=== PATIENT | female | born 1980 | race Caucasian/White ===

== ENCOUNTER 2019-06-20 09:07 | Day surgery (SDC) | payer BC, SELFPAY ==
[2019-06-19 17:02] VITALS: BMI 35.3
--- NOTE | 2019-06-20 08:09 | PM.HPUD ---
H&P update H&P Update: DATE OF SURGERY/PROCEDURE: 06/20/19 DATE H&P PERFORMED: 06/19/19 PLANNED PROCEDURE: Operation Date: 06/20/19 10:35 Proposed Procedures p EGD 31571 R10.12(Not Applicable) - Bear Pulido MD Full H&P Perinent History: Medical/Surgical History: Medical History (Updated 06/19/19 @ 17:56 by Bear Pulido MD) Chronic back pain (Acute) Hypothyroidism (Acute) Left upper quadrant pain (Acute) Migraines (Acute) Seizures (Acute) Family History: Family History (Updated 06/14/19 @ 14:01 by PINKY Arrieta) Mother Bipolar disorder Depression Father Diabetes Denies family history of Anesthesia complication Bleeding disorder Social History: Social History Smoking and tobacco status: never smoked Alcohol intake: never Lives independently: Yes Household members: family Marital status: Single Current occupational status: employed
--- NOTE | 2019-06-20 09:23 | ANES.PREANES ---
Pre-Anesthetic Assessment Pre-Anesthetic Assessment: Height/Weight: Height 1.68 m Weight 99.337 kg Preop Diagnosis: abdominal pain Proposed Procedure: Operation Date: 06/20/19 10:35 Proposed Procedures p EGD 13303 R10.12(Not Applicable) - Bear Pulido MD Familial anesthetic complications: No trouble Was Beta Ayesha taken within 24 hours: N/A Last intake: NPO > 8 hrs hrs, levothyroxine took this morning Social: Social History: No alcohol and No tobacco Exam: Pre-Anes Outpt Exam: alert, oriented x 3, clear to auscultation bilaterally and regular rate & rhythm Airway: Cervical ROM: WNL MP: 2 Additional comments: 1 missing Pulmonary: Pulmonary: None reported CV/HEM: CV/HEM: None reported : : None reported Hepatic: Hepatic: None reported GI: GI: None reported Metabolic: Metabolic: Thyroid Musc/skel: Musc/skel: Lower Back Pain Comments: chronic back pain Neuropsych: Neuropsych: Seizure Comments: last seizure 2004 - depakote (last took last night) - unknown etiology Anesthetic Plan: ASA status: III Anesthesia: MAC Risk of > 500 ml blood loss (7ml/kg in children): No PFSH Anesthesia PFSH: Social History Smoking and tobacco status: never smoked Alcohol intake: never Lives independently: Yes Household members: family Marital status: Single Current occupational status: employed Data Anesthesia Cardiac Studies: No Data to Display
[2019-06-20] MEDS: sodium chloride 0.9% 1,000 ML 30 ML (09:57)
[2019-06-20 10:35] VITALS: BP 113/77; RESP 18; TEMP 36.9; O2SAT 97
[2019-06-20] MEDS: ondansetron 2 mg/ML SDV 2 mL 4 MG IVP (10:47)
[2019-06-20 10:49] LABS: OR HCG Qualitative Urine Negative (Negative)
[2019-06-20 10:50] VITALS: BP 132/93; PULSE 79; RESP 16; O2SAT 99
--- NOTE | 2019-06-20 14:52 | ANE.PACU ---
 Inpatient post-anesthesia follow up: Airway intact: Yes Vital signs: Temperature 98.5 F Pulse Rate [Right Radial] 79 Respiratory Rate 16 Blood Pressure [Le ft Arm] 132/93 Pulse Oximetry 99 Oxygen Delivery Me thod Room Air Oxygen Flow Rate 2 Fraction of Inspir ed Oxygen Hydration adequate: Yes Nausea and vomiting: No Mental status: Baseline
== END 2019-06-20 11:11 | disposition home or self-care (01) ==
PROVIDERS: Family Provider Family Medicine; PCP Family Medicine; Visit Provider Surgery
PROC: 0DJ08ZZ Inspection of Upper Intestinal Tract, Via Natural or Artificial Opening Endoscopic (ICD-10-PCS; CPT 43235; principal; 2019-06-20 10:30)
DX: R10.12 Left upper quadrant pain (principal); Z90.49 Acquired absence of other specified parts of digestive tract; Z83.3 Family history of diabetes mellitus
CPT/HCPCS: 12345; 43239; 84703; 87077; 88305; 96365; 96374; J2001; J2405; J7030

== ENCOUNTER 2019-06-26 16:58 | Emergency (ER) | payer BC, SELFPAY ==
[2019-06-26 16:58] VITALS: BP 122/82; PULSE 99; RESP 18; TEMP 36.5; O2SAT 97
[2019-06-26 17:00] VITALS: BMI 34.7
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
[2019-06-26 18:00] LABS: Basophils % 0.1 %; Eosinophils # 0.1 10^3/uL (0.0-0.8); Eosinophils % 0.6 %; Hematocrit 40.9 % (37.0-47.0); Hemoglobin 13.1 g/dL (11.5-15.3); Lymphocytes # 1.6 10^3/uL (0.8-4.8); Lymphocytes % 13.4 %; Mean Corpuscular Hemoglobin 30.8 pg (28.0-34.0); Mean Corpuscular Volume 96.2 fL (81-99); Mean Platelet Volume 10.2 fL (7.4-10.4); Monocytes # 0.6 10^3/uL (0.2-0.9); Monocytes % 4.8 %; Neutrophils # 9.6 10^3/uL (1.8-7.7); Neutrophils % 80.5 %; Nucleated Red Blood Cells % 0 %; Platelet Count 173 10^3/cmm (130-400); Red Blood Count 4.25 10^6/uL (4.1-5.3); White Blood Count 11.9 10^3/uL (4.0-10.0)
[2019-06-26 18:10] LABS: INR 1.03 (0.8-1.2)
[2019-06-26 18:16] LABS: Lactate (Lactic Acid level) 2.9 mmol/L (0.5-2.2)
[2019-06-26 18:18] LABS: Alanine Aminotransferase 29 U/L (0-33); Albumin Level 4.3 g/dL (3.5-5.2); Alkaline Phosphatase 65 IU/L (35-105); Anion Gap 19.6 (5-19); Aspartate Amino Transferase 35 U/L (0-32); Blood Urea Nitrogen 9 mg/dL (6-20); Calcium 9.7 mg/Dl (8.6-10.0); Carbon Dioxide 21 mmol/L (22-29); Chloride 104 mmol/L (98-107); Globulin 2.6 g/dL (1.3-4.6); Glomerular Filtration Rate 110.7 mL/min (90-130); Glucose 129 mg/dL (74-109); Potassium 3.6 mmol/L (3.5-5.1); Sodium 141 mmol/L (136-145); Total Bilirubin 0.2 mg/dL (0.15-1.2); Total Protein 6.9 g/dL (6.6-8.7)
[2019-06-26 18:19] VITALS: RESP 18
[2019-06-26 18:19] LABS: HCG, Serum Qual Negative (Negative)
[2019-06-26] MEDS: morphine 4 mg/mL SDV 1 mL IVP (18:19)
[2019-06-26 21:05] VITALS: BP 107/82; PULSE 110; RESP 16; O2SAT 97
== END 2019-06-26 20:13 | disposition home or self-care (01) ==
PROVIDERS: Emergency Provider Nurse Practitioner Family; Family Provider Family Medicine; PCP Family Medicine
DX: S80.212A Abrasion, left knee, initial encounter (principal); S80.211A Abrasion, right knee, initial encounter; S00.01XA Abrasion of scalp, initial encounter; S40.212A Abrasion of left shoulder, initial encounter; S01.112A Laceration without foreign body of left eyelid and periocular area, initial encounter; S01.01XA Laceration without foreign body of scalp, initial encounter; V59.9XXA Occupant (driver) (passenger) of pick-up truck or van injured in unspecified traffic accident, initial encounter; E03.9 Hypothyroidism, unspecified
CPT/HCPCS: 12001; 12013; 36415; 70450; 70486; 71260; 72125; 74177; 80053; 83605; 84703; 85025; 85610; 96374; 99281; J2001; J2270

== ENCOUNTER 2019-07-05 08:40 | Outpatient (CLI) | payer BC, SELFPAY ==
--- NOTE | 2019-07-05 08:50 | XR_ITS ---
WS: [id number] CHEST 2 VIEWS HISTORY: Cough with shoulder pain. COMPARISON: 02/27/2019 Lungs: Linear, segmental atelectasis or scar at the lingula. Similar to the prior study. No pneumonia . Normal vasculature. Cardiac size: Normal. Mediastinum/Aorta: Normal mediastinum. Bones: Normal. Dorsal column stimulator electrodes over the thoracic spine. XR/XR chest 2V* [id number] IMPRESSION: No acute cardiopulmonary disease.
--- NOTE | 2019-07-05 08:51 | XR_ITS ---
WS: [id number] LEFT SHOULDER: 3 VIEW(S) TECHNIQUE: Internal and external rotation with Y view. HISTORY: SHOULDER PAIN LEFT COMPARISON: None available. No fracture or dislocation or soft tissue abnormality. Very mild narrowing of the AC joint with small osteophytes. Dorsal column stimulator electrodes over the mid thoracic spine. XR/XR shoulder LT min 2V* [id number] IMPRESSION: Mild AC joint arthritis.
== END 2019-07-05 08:41 | disposition home or self-care (01) ==
PROVIDERS: Family Provider Family Medicine; PCP Family Medicine; Visit Provider Nurse Practitioner Family
DX: M13.812 Other specified arthritis, left shoulder (principal); J98.11 Atelectasis; M25.512 Pain in left shoulder; R05 Cough
CPT/HCPCS: 71046; 73030

== ENCOUNTER 2019-11-21 15:25 | Outpatient (CLI) | payer BC, SELFPAY ==
--- NOTE | 2019-11-21 15:30 | MM_ITS ---
WS: [id number] BILATERAL DIGITAL SCREENING MAMMOGRAPHY WITH CAD CLINICAL INFORMATION: SCREENING HISTORY: Screening mammogram. No current complaints. COMPARISON: None. TECHNIQUE: Bilateral CC and MLO views. FINDINGS: The breasts are composed of heterogeneous fibroglandular density tissue, which can limit the detectio n of small underlying mass lesions. No suspicious mass, asymmetry, calcifications, or architectural d istortion. No evidence of malignancy. MM/[place] [id number] IMPRESSION: BI-RADS: 1-Negative FOLLOW UP: 1 Year Follow-up Recommend return to annual screening mammography.
== END 2019-11-21 15:26 | disposition home or self-care (01) ==
PROVIDERS: PCP Family Medicine; Visit Provider Nurse Practitioner Family
DX: Z12.31 Encounter for screening mammogram for malignant neoplasm of breast (principal)
CPT/HCPCS: 77067

== ENCOUNTER 2020-01-12 15:48 | Outpatient (CLI) | payer BC, SELFPAY ==
--- NOTE | 2020-01-12 15:58 | XRR_ITS ---
PROCEDURE INFORMATION: Exam: XR Abdomen, 1 View Exam date and time: 01/12/2020 3:59 PM Age: 39 years old Clinical indication: Constipation and nausea; Prior surgery; Surgery type: Gb; Additional info: Constipation, nausea TECHNIQUE: Imaging protocol: XR of the abdomen. Views: Frontal supine view of the abdomen. 1 View. COMPARISON: CT chest abd pel w con* 06/26/2019 6:35 PM FINDINGS: Tubes, catheters and devices: A spinal cord stimulator is unchanged in position. Gastrointestinal tract: Increased fecal content in the colon. Nonobstructive bowel gas pattern. Intraperitoneal space: No free intraperitoneal air. Organs: No organomegaly. Bones/joints: Post-surgical changes consistent with previous spine fusion from L5-S1. Findings are stable. Soft tissues: No pathologic calcifications. XR/XR KUB [id number] IMPRESSION: 1. Nonobstructed bowel gas pattern. 2. Increased fecal content in the colon. 3. Incidental/nonacute findings are listed in the report.
== END 2020-01-12 15:49 | disposition home or self-care (01) ==
LOC: RADWPI 15:51
PROVIDERS: PCP Nurse Practitioner Family; Visit Provider Nurse Practitioner Family
DX: K59.00 Constipation, unspecified (principal); R11.0 Nausea
CPT/HCPCS: 74018

== ENCOUNTER 2020-03-19 14:51 | Emergency (ER) | payer BC, SELFPAY ==
[2020-03-19 14:58] VITALS: BP 100/64; PULSE 94; RESP 28; TEMP 37.3; O2SAT 100; BMI 33.5
--- NOTE | 2020-03-19 15:33 | XR_ITS ---
WS: [id number] PORTABLE CHEST HISTORY: dyspnea, COVID r/o COMPARISON: 07/05/2019 Decreased lung volumes. Scattered opacifications. Largest opacification RIGHT upper lobe. Additional scattered opacifications in the mid and lower LEFT lung. No pleural effusion or pneumothorax. Cardiac size: Normal. Mediastinum/Aorta: Normal mediastinum. No osseous abnormality seen. Dorsal column stimulator wires over the mid and lower thoracic spine. Prior cholecystectomy. XR/XR chest 1V portable [id number] IMPRESSION: Scattered multi lobar opacifications.
[2020-03-19 15:58] LABS: Basophils % 0.3 %; Eosinophils % 0.3 %; Hematocrit 43.4 % (37.0-47.0); Lymphocytes # 0.9 10^3/uL (0.8-4.8); Lymphocytes % 25.5 %; Mean Corpuscular HGB Conc 32.3 g/dL (30.0-36.0); Mean Corpuscular Hemoglobin 29.8 pg (28.0-34.0); Mean Corpuscular Volume 92.3 fL (81-99); Mean Platelet Volume 11.3 fL (7.4-10.4); Monocytes # 0.2 10^3/uL (0.2-0.9); Monocytes % 5.9 %; Neutrophils # 2.31 10^3/uL (1.8-7.7); Neutrophils % 67.7 %; Nucleated Red Blood Cells % 0 %; Platelet Count 77 10^3/cmm (130-400); Red Cell Distribution Width 12.9 % (12.1-15.1); White Blood Count 3.4 10^3/uL (4.0-10.0)
[2020-03-19 16:10] LABS: INR 0.89 (0.8-1.2)
[2020-03-19 16:11] LABS: Fibrinogen 425 mg/dL (174-498)
[2020-03-19 16:13] LABS: D Dimer <= 0.27 ug/mIFEU (0-0.59)
[2020-03-19 16:24] LABS: NT Pro B Type Natriuretic Pept 5 pg/mL (0-125); Procalcitonin 0.07 ng/mL (0-0.5)
[2020-03-19 16:35] VITALS: O2SAT 98
[2020-03-19 16:40] LABS: Alanine Aminotransferase 30 U/L (0-33); Albumin Level 4.2 g/dL (3.5-5.2); Alkaline Phosphatase 84 IU/L (35-105); Anion Gap 17.5 (5-19); Aspartate Amino Transferase 32 U/L (0-32); Blood Urea Nitrogen 10 mg/dL (6-20); C Reactive Protein 60.7 mg/L (0.0-4.9); Calcium 8.9 mg/dL (8.5-10.5); Carbon Dioxide 22 mmol/L (22-29); Chloride 102 mmol/L (98-107); Ferritin 488 ng/mL (15-150); Globulin 2.4 g/dL (1.3-4.6); Glomerular Filtration Rate 110.7 mL/min (90-130); Glucose 129 mg/dL (65-115); Lactate Dehydrogenase 182 U/L (135-214); Osmolality Calculated 287 mOsm/kg (285-295); Potassium 3.5 mmol/L (3.5-5.1); Sodium 138 mmol/L (136-145); Total Bilirubin 0.2 mg/dL (0.15-1.2); Total Protein 6.6 g/dL (6.6-8.7)
[2020-03-19 16:42] LABS: Lactic Sepsis W/Reflex 2.6 mmol/L (0.5-2.2)
[2020-03-19] MEDS: sodium chloride 0.9% 1,000 ML 999 ML IV ×2 (16:46→19:13)
[2020-03-19] MEDS: ondansetron 2 mg/ML SDV 2 mL 4 MG IVP (16:46)
[2020-03-19 16:52] VITALS: PULSE 94; RESP 18; O2SAT 100
--- NOTE | 2020-03-19 16:58 | ED_ITS ---
HPI - COVID General: Chief Complaint: COVID symptoms Stated Complaint: COVID SYMPTOMS Time Seen by Provider: 03/19/20 15:05 Triage information: Has fever, cough or shortness of breath . Exposure to COVID + person last 14 days History of Present Illness: HPI Narrative: This patient is a 39-year-old female who presents today with COVID symptoms. She has had a positive exposure at home via her father who is positive. She has not had a test, but started having symptoms 7 days ago. She has had fever, chills, myalgias, vomiting, diarrhea, shortness of breath and cough. She hasn't been able to keep anything down for several days. She has been checking her pulse ox at home and it has been good. complaint: reported COVID exposure and has COVID symptoms Prior covid testing: no COVID 19 common symptoms: positive fever(s), chills, cough, non-productive cough, dyspnea, fatigue, body aches, headache(s), throat pain, nasal congestion, nausea, vomiting and diarrhea COVID 19 other sytmptoms: positive chest pressure; negative chest pain Onset (ago): day(s) (7) Severity: severe Pertinent comorbid conditions: obesity and other (Status post thyroidectomy, seizures) Treatment prior to arrival: acetaminophen COVID Results: SARS-CoV-2 Antigen (Rapid) Positive (Negative) H 03/19/20 16:55 03/19/20 Review of Systems General: Reports: 10 or more systems reviewed and unremarkable except in HPI and below Const: Reports: fever(s), chills, body aches and fatigue Eyes: Denies: change in vision ENMT: Reports: throat pain and nasal congestion Card: Denies: chest pain or swelling of feet/ankles Resp: Reports: dyspnea and non-productive cough GI: Reports: nausea, vomiting and diarrhea : Denies: flank pain or difficulty voiding Musc: Denies: neck pain or back pain Skin/Breast: Denies: rash Neuro: Reports: headache(s) Subhash/Lymph: Denies: easy bruising or easy bleeding PFS ED PFSH: Medical History Chronic back pain Gastritis determined by endoscopy Hypothyroidism Migraines Seizures Surgical History History of cholecystectomy (02/04/18) History of esophagogastroduodenoscopy (EGD) 06/20/2019: Severe gastritis with bile reflux History of lumbar fusion (05/11/16) Dr. Cruz Left L5-S1 laminotomy/foraminotomy/discectomy for decompression . L5-S1 PLIFF. Please intervertebral prosthetic device. Removal of L5-S1 [employer] stabilization construct. History of thyroidectomy S/P insertion of spinal cord stimulator (2008) 01/10/2015 Dr. Cruz. Replacement of subcutaneous programmable pulse generator with connection to intraspinal epidural electrode arrays. Family History Mother Bipolar disorder Depression Father Diabetes Denies family history of Anesthesia complication Bleeding disorder Social History Smoking and tobacco status: never smoked Alcohol intake: never Lives independently: Yes Household members: family Marital status: Single Current occupational status: employed Female Reproductive History: Date of last menstrual period: 06/26/19 Physical Exam Const: COMMON NORMALS: patient oriented x3, no limitations and alert GENERAL APPEARANCE: cooperative HENMT: HEAD & SCALP: normal to inspection FACE & SINUS: normal facial exam Eye: GENERAL EYE: appearance normal, both eyes and all related structures Neck/C-Spine: COMMON NORMALS: supple, no meningeal signs and no JVD Chest: COMMONS NORMALS: normal inspection of the chest Resp: COMMON NORMALS: normal respiratory effort and No use of accessory muscles EFFORT & INSPECTION: Yes tachypneic AUSCULTATION: rhonchi (right anterior) Cardio: COMMON NORMALS: no JVD, regular rate, regular rhythm and No murmurs present (Cardio) RATE: regular rate RHYTHM: regular rhythm GI: COMMON NORMALS: Normal to inspection, nondistended, normoactive bowel sounds present, Soft to palpation and non-tender INSPECTION: Yes normal to inspection AUSCULTATION: Yes normoactive bowel sounds PALPATION: Yes Soft to palpation Back/Pelvis: COMMON NORMALS: thoracic and lumbar spine normal to inspection Extremity: COMMON NORMALS: normal to inspection Neuro: COMMON NORMALS: patient oriented x3, moves all extremities, no focal motor deficits and no sensory deficits noted SENSORIUM/ORIENTATION: Yes alert MENINGEAL SIGNS: Yes no meningeal signs Psych: COMMON NORMALS: mental status grossly normal, cooperative and normal affect Skin: COMMON NORMALS: no rashes or lesions noted and turgor normal GENERAL SKIN EXAM: no rashes or lesions noted and turgor normal Course ED course: This patient certainly appeared to feel miserable and remained in the ER for quite a while getting fluids and resting. Her labs were consistent with COVID although she did have a low platelet count which seems to be new for her. She does have good follow-up with the primary care doctor. She was not requiring oxygen. She was tolerating p.o. fluids. She has a pulse ox at home and will continue to check her oxygen. There is no indication for admission at this time. I did give her some Decadron. Vital Signs: Vital signs: Vital Signs Temperature 98.2 F 03/19/20 21:10 Pulse Rate 84 03/19/20 21:10 Respiratory Rate 18 03/19/20 21:10 Blood Pressure 113/66 03/19/20 21:10 Pulse Oximetry 99 03/19/20 21:10 MDM - COVID Lab Data Result diagrams: 03/19/20 15:46 03/19/20 15:46 Labs: Lab Results 03/19/20 03/19/20 03/19/20 Range/Units 15:46 15:46 15:46 WBC 3.4 L (4.0-10.0) 10^3/uL RBC 4.70 (4.1-5.3) 10^6/uL Hgb 14.0 (11.5-15.3) g/dL Hct 43.4 (37.0-47.0) % MCV 92.3 (81-99) fL MCH 29.8 (28.0-34.0) pg MCHC 32.3 (30.0-36.0) g/dL RDW 12.9 (12.1-15.1) % Plt Count 77 L (130-400) 10^3/cmm MPV 11.3 H (7.4-10.4) fL Neut % (Auto) 67.7 % Lymph % (Auto) 25.5 % [place] % (Auto) 5.9 % Eos % (Auto) 0.3 % Baso % (Auto) 0.3 % Neut # (Auto) 2.31 (1.8-7.7) 10^3/uL Lymph # (Auto) 0.9 (0.8-4.8) 10^3/uL [place] # (Auto) 0.2 (0.2-0.9) 10^3/uL Eos # (Auto) 0.0 (0.0-0.8) 10^3/uL Baso # (Auto) 0.0 (0.0-0.1) 10^3/uL Nucleated RBC % (auto) 0 % Nucleated RBCs # 0.0 /100WBC PT 12.30 (12.1-14.9) SECONDS INR 0.89 (0.8-1.2) Fibrinogen 425 (174-498) mg/dL D-Dimer <= 0.27 (0-0.59) ug/mIFEU Sodium 138 (136-145) mmol/L Potassium 3.5 (3.5-5.1) mmol/L Chloride 102 (98-107) mmol/L Carbon Dioxide 22 (22-29) mmol/L Anion Gap 17.5 (5-19) BUN 10 (6-20) mg/dL Creatinine 0.6 (0.5-0.9) mg/dL GFR Calculation 110.7 (90-130) mL/min Glucose 129 H (65-115) mg/dL Calculated Osmolality 287 (285-295) mOsm/kg Lactic Acid (0.5-2.2) mmol/L Lactic Acid (Sepsis) (0.5-2.2) mmol/L Calcium 8.9 (8.5-10.5) mg/dL Ferritin 488 H (15-150) ng/mL Total Bilirubin 0.2 (0.15-1.2) mg/dL AST 32 (0-32) U/L ALT 30 (0-33) U/L Alkaline Phosphatase 84 (35-105) IU/L Lactate Dehydrogenase 182 (135-214) U/L C-Reactive Protein 60.7 H (0.0-4.9) mg/L NT-Pro-B Natriuret Pep 5 (0-125) pg/mL Total Protein 6.6 (6.6-8.7) g/dL Albumin 4.2 (3.5-5.2) g/dL Globulin 2.4 (1.3-4.6) g/dL Procalcitonin 0.07 (0-0.5) ng/mL Valproic Acid (50-100) ug/mL Influenza Type A Ag (Negative) Influenza Type B Ag (Negative) SARS-CoV-2 Ag (Rapid) (Negative) 03/19/20 03/19/20 03/19/20 Range/Units 15:46 15:46 16:55 WBC (4.0-10.0) 10^3/uL RBC (4.1-5.3) 10^6/uL Hgb (11.5-15.3) g/dL Hct (37.0-47.0) % MCV (81-99) fL MCH (28.0-34.0) pg MCHC (30.0-36.0) g/dL RDW (12.1-15.1) % Plt Count (130-400) 10^3/cmm MPV (7.4-10.4) fL Neut % (Auto) % Lymph % (Auto) % [place] % (Auto) % Eos % (Auto) % Baso % (Auto) % Neut # (Auto) (1.8-7.7) 10^3/uL Lymph # (Auto) (0.8-4.8) 10^3/uL [place] # (Auto) (0.2-0.9) 10^3/uL Eos # (Auto) (0.0-0.8) 10^3/uL Baso # (Auto) (0.0-0.1) 10^3/uL Nucleated RBC % (auto) % Nucleated RBCs # /100WBC PT (12.1-14.9) SECONDS INR (0.8-1.2) Fibrinogen (174-498) mg/dL D-Dimer (0-0.59) ug/mIFEU Sodium (136-145) mmol/L Potassium (3.5-5.1) mmol/L Chloride (98-107) mmol/L Carbon Dioxide (22-29) mmol/L Anion Gap (5-19) BUN (6-20) mg/dL Creatinine (0.5-0.9) mg/dL GFR Calculation (90-130) mL/min Glucose (65-115) mg/dL Calculated Osmolality (285-295) mOsm/kg Lactic Acid 2.6 H (0.5-2.2) mmol/L Lactic Acid (Sepsis) (0.5-2.2) mmol/L Calcium (8.5-10.5) mg/dL Ferritin (15-150) ng/mL Total Bilirubin (0.15-1.2) mg/dL AST (0-32) U/L ALT (0-33) U/L Alkaline Phosphatase (35-105) IU/L Lactate Dehydrogenase (135-214) U/L C-Reactive Protein (0.0-4.9) mg/L NT-Pro-B Natriuret Pep (0-125) pg/mL Total Protein (6.6-8.7) g/dL Albumin (3.5-5.2) g/dL Globulin (1.3-4.6) g/dL Procalcitonin (0-0.5) ng/mL Valproic Acid 66.9 (50-100) ug/mL Influenza Type A Ag (Negative) Influenza Type B Ag (Negative) SARS-CoV-2 Ag (Rapid) Positive H (Negative) 03/19/20 03/19/20 Range/Units 16:55 19:12 WBC (4.0-10.0) 10^3/uL RBC (4.1-5.3) 10^6/uL Hgb (11.5-15.3) g/dL Hct (37.0-47.0) % MCV (81-99) fL MCH (28.0-34.0) pg MCHC (30.0-36.0) g/dL RDW (12.1-15.1) % Plt Count (130-400) 10^3/cmm MPV (7.4-10.4) fL Neut % (Auto) % Lymph % (Auto) % [place] % (Auto) % Eos % (Auto) % Baso % (Auto) % Neut # (Auto) (1.8-7.7) 10^3/uL Lymph # (Auto) (0.8-4.8) 10^3/uL [place] # (Auto) (0.2-0.9) 10^3/uL Eos # (Auto) (0.0-0.8) 10^3/uL Baso # (Auto) (0.0-0.1) 10^3/uL Nucleated RBC % (auto) % Nucleated RBCs # /100WBC PT (12.1-14.9) SECONDS INR (0.8-1.2) Fibrinogen (174-498) mg/dL D-Dimer (0-0.59) ug/mIFEU Sodium (136-145) mmol/L Potassium (3.5-5.1) mmol/L Chloride (98-107) mmol/L Carbon Dioxide (22-29) mmol/L Anion Gap (5-19) BUN (6-20) mg/dL Creatinine (0.5-0.9) mg/dL GFR Calculation (90-130) mL/min Glucose (65-115) mg/dL Calculated Osmolality (285-295) mOsm/kg Lactic Acid (0.5-2.2) mmol/L Lactic Acid (Sepsis) 1.5 (0.5-2.2) mmol/L Calcium (8.5-10.5) mg/dL Ferritin (15-150) ng/mL Total Bilirubin (0.15-1.2) mg/dL AST (0-32) U/L ALT (0-33) U/L Alkaline Phosphatase (35-105) IU/L Lactate Dehydrogenase (135-214) U/L C-Reactive Protein (0.0-4.9) mg/L NT-Pro-B Natriuret Pep (0-125) pg/mL Total Protein (6.6-8.7) g/dL Albumin (3.5-5.2) g/dL Globulin (1.3-4.6) g/dL Procalcitonin (0-0.5) ng/mL Valproic Acid (50-100) ug/mL Influenza Type A Ag Negative (Negative) Influenza Type B Ag Negative (Negative) SARS-CoV-2 Ag (Rapid) (Negative) COVID Results: SARS-CoV-2 Antigen (Rapid) Positive (Negative) H 03/19/20 16:55 03/19/20 Discharge Plan Discharge Patient Disposition: Home Clinical Impression: COVID-19, Acute dehydration, Pneumonitis Condition: Stable Prescriptions: New ondansetron HCl 4 mg tablet 4 mg PO Q6H PRN (Reason: nausea and vomiting) Qty: 10 RF: 0 Decadron 6 mg tablet 6 mg PO DAILY Qty: 7 RF: 0 No Action morphine 30 mg tablet 30 mg PO Q8H PRN (Reason: Pain) RF: 0 hydrocodone-acetaminophen [Watts] 10-325 mg tablet 1 tab PO Q4-5H PRN (Reason: Pain) RF: 0 carisoprodol [Soma] 350 mg tablet 350 mg PO TID PRN (Reason: Spasms) RF: 0 Aimovig Autoinjector 70 mg/mL auto-injector 70 mg SUBCUT DIRECTED RF: 0 amitriptyline 25 mg tablet 25 mg PO BEDTIME RF: 0 zonisamide 100 mg capsule 100 mg PO DAILY RF: 0 norethindrone ac-eth estradiol [Loestrin 06/26 ()] 1-20 mg-mcg tablet 1 tab PO DAILY RF: 0 levothyroxine 200 mcg capsule 200 mcg PO DAILY RF: 0 divalproex [Depakote] 500 mg tablet,delayed release (DR/EC) 1,250 mg PO BEDTIME RF: 0 sucralfate [Carafate] 1 gram tablet 1 gm PO Q6H PRN (Reason: stomach upset) Qty: 120 RF: 1 Protonix 40 mg tablet,delayed release (DR/EC) 40 mg PO BIDWM 42 Days Qty: 42 RF: 3 hydrocodone-acetaminophen 5-325 mg tablet 1 tab PO Q6H PRN (Reason: pain) Qty: 10 RF: 0 ibuprofen 800 mg tablet 800 mg PO Q8H PRN (Reason: pain) Qty: 30 RF: 0 Discharge Orders: Discharge Order (Routine); Ordered 03/19/20 Ordered By: Lilly Stoner Referrals: OPAL ZACARIAS, [employer]NER [Primary Care Provider] - Discharge Diet: Usual diet Discharge Activity: Resume usual activity Patient Instructions: Acute Nausea and Vomiting (ED), Acute Diarrhea (ED), Viral Syndrome (ED) Activity Restrictions/Additional Instructions: Continue to check your pulse oximeter at home. Return to the ER if it gets down to 90 and stays there for any length of time. Return as well if you not able to take fluids or if you feel like you are getting dehydrated again. Continue to self quarantine until you are symptom-free for 48 hours. Discharge Date/Time: 03/19/20 21:13 Coding Level of Care Code ED Orientation And Mobility Specialist 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
[2020-03-19 17:28] LABS: SARS Covid-2 Antigen Positive (Negative)
[2020-03-19 17:37] LABS: Valproic Acid Level 66.9 ug/mL (50-100)
[2020-03-19 17:40] LABS: Reflex Lactate Order REFLEX LACTIC ORDERD
[2020-03-19 17:48] LABS: Influenza A by IFA Negative (Negative); Influenza B by IFA Negative (Negative)
[2020-03-19 19:15] VITALS: BP 110/87; PULSE 89; RESP 18; O2SAT 97
[2020-03-19] MEDS: metoclopramide 5 mg/mL SDV 2 mL 10 MG IVP (19:21)
[2020-03-19 19:48] LABS: Lactic Acid level (Lactate) 1.5 mmol/L (0.5-2.2)
[2020-03-19 20:36] VITALS: BP 131/77; PULSE 86; RESP 18; O2SAT 99
[2020-03-19 21:10] VITALS: BP 113/66; PULSE 84; RESP 18; TEMP 36.8; O2SAT 99
== END 2020-03-19 21:13 | disposition home or self-care (01) ==
PROVIDERS: Emergency Provider Emergency Medicine; PCP Nurse Practitioner Family
DX: U07.1 COVID-19 (principal); J12.89 Other viral pneumonia; E86.0 Dehydration
CPT/HCPCS: 12345; 71045; 80053; 80164; 82728; 83605; 83615; 83880; 84145; 85025; 85378; 85384; 85610; 86140; 87426; 87804; 96361; 96374; 96375; 99283; 99284; J2405; J2765; J7030

== ENCOUNTER 2020-04-01 17:07 | Outpatient (CLI) | payer BC, SELFPAY ==
--- NOTE | 2020-04-01 17:21 | XR_ITS ---
WS: [id number] CHEST 2 VIEWS HISTORY: COVID, dyspnea COMPARISON: 03/19/2020 Lungs: Lung volumes are decreased. Linear, subsegmental area of atelectasis or scar at the lingula is unchanged. Overall significant improvement in aeration and expansion since 03/19/2020. Cardiac size: Normal. Mediastinum/Aorta: Normal mediastinum. Bones: Normal. Electrodes project over the mid and lower thoracic spine from the dorsal column stimulator. XR/XR chest 2V* [id number] IMPRESSION: Significant improvement in aeration since the prior study. Minimal linear resid ual atelectasis or scar at the lingula.
== END 2020-04-01 17:08 | disposition home or self-care (01) ==
LOC: RAD 17:13
PROVIDERS: PCP Nurse Practitioner Family; Visit Provider Internal Medicine
DX: U07.1 COVID-19 (principal); R06.00 Dyspnea, unspecified
CPT/HCPCS: 71046

== ENCOUNTER → 2020-10-15 11:17 | Outpatient (BNVA) | payer BC, SELFPAY | PROVIDERS: PCP Nurse Practitioner Family; Referring Provider Anesthesiology Pain Medicine; Visit Provider Orthopaedic Surgery | DX: G89.29 Other chronic pain; M48.062 Spinal stenosis, lumbar region with neurogenic claudication | CPT/HCPCS: 72072; 72110 ==

== ENCOUNTER 2020-11-06 08:18 | Outpatient (CLI) | payer BC, SELFPAY ==
--- NOTE | 2020-11-06 08:31 | CT_ITS ---
WS: [id number] CT THORACIC MYELOGRAM HISTORY: M54.9 - Dorsalgia, unspecified TECHNIQUE: Contiguous 2.5 mm axial images are reviewed to thoracic spine. Images are reformatted in s agittal and coronal planes. All CT scans at [facility] use at least one of these dose opt imization techniques: automated exposure control; mA and/or kV adjustment per patient size (includes targeted exams where dose is matched to clinical indication); or iterative reconstruction. DLP: 1000.24 mGycm COMPARISON: 08/28/2015 Dorsal column stimulator lead replacement extends from T6 through T8 8. No change in position since t he prior examination. There is mild disc space narrowing and small endplate osteophytes throughout th e thoracic spine. Very slight anterior wedging of T7 and T11. The T11 anterior wedging is new and may be secondary to a small Schmorl's node involving the superior endplate. No cord atrophy or enlargeme nt. T1-T2 through T6-7: No significant stenosis. Beginning at the electrode level there is beam hardening artifact through the central canal due to th e electrodes. There may be very slight narrowing of the central canal. No focal disc protrusions or h igh-grade stenosis is identified. At T8-9 and T9-10 no significant stenosis. T10-11 tiny central disc protrusion. Facet joint osteophytes encroach into the thecal sac with mild c ontact on the thecal sac on the LEFT. T12-L1: Very small RIGHT paracentral disc protrusion without cord contact. CT/CT thoracic spine w con [id number] IMPRESSION: 1. No high-grade stenosis throughout the thoracic spine. 2. New mild anterior wedging at T11. 10% loss of height may be secondary to a Schmorl's node or minimal fracture along the superior endplate. No retropulsion or cord contact. 3. Very small RIGHT paracentral disc protrusion at T11-12 and centrally at T10 -11.
--- NOTE | 2020-11-06 08:31 | IR_ITS ---
WS: [id number] THORACIC AND LUMBAR MYELOGRAMs HISTORY: M54.9 - Dorsalgia, unspecified COMPARISON: 12/26/2018 FLUOROSCOPY TIME: 1.4 minutes. Procedure, risks and complications were explained to the patient. Risks including bleeding, infection , headaches, allergic reaction and seizures. Consent has been obtained. With the patient in prone position the skin over the lumbar region is cleansed with ChloraPrep and an esthetized with lidocaine. 22-gauge spinal needle is inserted into the thecal sac at the appropriate level determined by fluoroscopy. Omnipaque 300; 13 ml is injected slowly under fluoroscopy with no co mplications. Needle bevel is perpendicular to the longitudinal fibers of the dura. Stylet is reinsert ed prior to removal of the needle. Patient tolerated the procedure well. Patient will proceed to CT f or further evaluation. Posterior lumbar fusion at L5-S1. No fractures in the hardware. There is an interbody spacer at L5-S1 with fusion. Dorsal column stimulator wires and electrodes noted over the thoracic region. Mild straightening of the normal lumbar lordosis. No flexion or extension instability. No lumbar spin e fractures. There is mild anterior wedging of T11 which is new. Mild LEFT curvature of the thoracic spine. Electrodes project from T6 to T8 over the thoracic spine. Mild disc space narrowing throughout with small endplate osteophytes. Limited visualization of contra st within the thoracic region is probably positional. On the dedicated CT there is better distributio n of the contrast. IR/IR myelogram spine thorac/lumb IMPRESSION: 1. New mild anterior wedging of T11 without retropulsion. 2. Dorsal column electrodes project over the mid thoracic spine with no change in position. 3. No high-grade stenosis identified radiographically. Limited distribution of the contrast within the thoracic region. On the post myelogram CT there is bet ter distribution of the contrast. 4. Posterior lumbar fusion at L5-S1 with fusion across the disc spacer. 5. Patient to proceed for thoracic and lumbar CTs.
--- NOTE | 2020-11-06 08:31 | CT_ITS ---
WS: [id number] CT MYELOGRAM LUMBAR SPINE HISTORY: M54.9 - Dorsalgia, unspecified TECHNIQUE: Contiguous 2.5 mm axial imaging performed from T12 through the mid sacral level. Bone and soft tissue windows reviewed. Sagittal and coronal reformats are submitted and reviewed. DLP: 2035.[address] scans at [facility] use at least one of these dose optimization techniques: automat ed exposure control; mA and/or kV adjustment per patient size (includes targeted exams where dose is matched to clinical indication); or iterative reconstruction. COMPARISON: 12/26/2018 Good opacification of the cul-de-sac. Patient is status post posterior lumbar fusion at L5-S1 with in terbody spacer. No change in height of the disc space at L5-S1. No subsidence of the spacer. There is fusion across spacer. No fractures. L1-L2: Normal. L2-L3: Normal. L3-L4: Very mild annular disc bulging and ligamentum flavum hypertrophy. Slightly greater ligamentum flavum hypertrophy on the LEFT. There is very mild narrowing of the thecal sac but not significantly stenosed. L4-L5: Moderate annular disc bulging. Mild bilateral facet joint arthritis and ligamentum flavum hype rtrophy. L5-S1: Mild osteophytic ridging around the vertebral bodies. There is a very shallow central disc bul ge. Bulge contacts but does not displace the nerve roots. No significant foraminal stenosis. Dorsal column stimulator electrodes are noted over the lower thoracic region. CT/CT lumbar spine w con [id number] IMPRESSION: 1. Status post stable posterior lumbar fusion with laminectomy, interbody spac er at L5-S1. No change since 12/26/2018. 2. Mild disc bulging with asymmetric ligamentum flavum hypertrophy on the LEFT at L3-4. Very mild central stenosis at L3-4.
[2020-11-06] MEDS: iohexol 300 mg/mL 50 mL Btl INTRATHECA (09:45)
== END 2020-11-06 08:19 | disposition home or self-care (01) ==
PROVIDERS: PCP Nurse Practitioner Family; Visit Provider Orthopaedic Surgery
DX: M48.54XA Collapsed vertebra, not elsewhere classified, thoracic region, initial encounter for fracture (principal); M51.24 Other intervertebral disc displacement, thoracic region; M43.27 Fusion of spine, lumbosacral region; M96.1 Postlaminectomy syndrome, not elsewhere classified; M51.26 Other intervertebral disc displacement, lumbar region
CPT/HCPCS: 62305; 72120; 72129; 72132; Q9967

== ENCOUNTER → 2020-11-27 16:07 | Outpatient (BNVA) | payer BC, SELFPAY | PROVIDERS: PCP Nurse Practitioner Family; Visit Provider Orthopaedic Surgery | DX: Z01.812 Encounter for preprocedural laboratory examination (principal); Z20.822 Contact with and (suspected) exposure to COVID-19 | CPT/HCPCS: 87635 ==

== ENCOUNTER → 2020-12-03 14:52 | Outpatient (BNVA) | payer BC, SELFPAY | PROVIDERS: PCP Nurse Practitioner Family; Visit Provider Orthopaedic Surgery | DX: Z01.812 Encounter for preprocedural laboratory examination (principal); Z20.822 Contact with and (suspected) exposure to COVID-19 | CPT/HCPCS: 87635 ==

== ENCOUNTER 2020-12-10 05:56 | Day surgery (SDC) | payer OTHER, SELFPAY ==
[2020-12-05 12:57] VITALS: BMI 35.5
--- NOTE | 2020-12-05 13:29 | ANES.PREANE2 ---
Pre-Anesthetic Assessment Pre-Anesthetic Assessment: Height/Weight: Height 1.68 m Weight 99.79 kg Preop Diagnosis: Left upper quadrant pain Proposed Procedure: Operation Date: 12/06/20 14:50 Proposed Procedures p Lumbar Spine Decompression 32215 m48.062(Not Applicable) - Milton Dolan, DO Was Beta Ayesha taken within 24 hours: N/A Was Clonidine taken within 24 hours: N/A Social: Social History: No alcohol and No tobacco Exam: Pre-Anes Outpt Exam: alert, oriented x 3, clear to auscultation bilaterally and regular rate & rhythm Airway: Submandibular: WNL Cervical ROM: WNL MP: 2 Dentition: Full Metabolic: Metabolic: Morbid obesity and Thyroid Musc/skel: Musc/skel: Lower Back Pain Anesthetic Plan: ASA status: 3 Anesthesia: General Risk of > 500 ml blood loss (7ml/kg in children): No PFSH Anesthesia PFSH: Medical History Chronic back pain Gastritis determined by endoscopy Hypothyroidism Migraines Seizures Surgical History History of cholecystectomy (02/04/18) History of esophagogastroduodenoscopy (EGD) 06/20/2019: Severe gastritis with bile reflux History of lumbar fusion (05/11/16) Dr. Cruz Left L5-S1 laminotomy/foraminotomy/discectomy for decompression . L5-S1 PLIFF. Please intervertebral prosthetic device. Removal of L5-S1 [employer] stabilization construct. History of thyroidectomy S/P insertion of spinal cord stimulator (2008) 01/10/2015 Dr. Cruz. Replacement of subcutaneous programmable pulse generator with connection to intraspinal epidural electrode arrays. Family History Mother Bipolar disorder Depression Father Diabetes Denies family history of Anesthesia complication Bleeding disorder Social History Smoking and tobacco status: never smoked Alcohol intake: never Lives independently: Yes Household members: family Marital status: Single Current occupational status: employed Female Reproductive History: Date of last menstrual period: 11/25/20 Data Anesthesia Cardiac Studies: No Data to Display
[2020-12-10] VITALS (11 sets, daily range): BP systolic 133–149; BP diastolic 70–102; PULSE 80–108; RESP 17–21; TEMP 36.4–36.9; O2SAT 95–100
--- NOTE | 2020-12-10 | XR_ITS ---
WS: [id number] C-ARM RADIOGRAPHS LUMBAR SPINE; 2 IMAGES HISTORY: LUMBAR SPINE DECOMPRESSION COMPARISON: 11/06/2020 Intraoperative imaging during spinal decompression. Hardware overlies L4 vertebral body. Prior L5-S1 posterior fusion. XR/XR lumbar spine 1V [id number] IMPRESSION: Intraoperative imaging during spinal decompression.
--- NOTE | 2020-12-10 | SCC_ITS ---
Procedure Done: L3/4 Laminectomy with bilateral partial facetectomies 11.2 seconds of fluoroscopic guidance, for a cumulative dose of 5.43 mGy, was provided to Dr. Dolan by the radiology department. C-arm images of the lumbar spine were saved for the patient's permanent record. ALBERTA
--- NOTE | 2020-12-10 06:47 | P.ANESUD_ITS ---
Pre-Anesthetic Update Pre-Anesthetic Assessment: Date of Surgery/Procedure: 12/10/20 Preop Jasmin gnosis: lumbar stenosis Proposed Procedure: Operation Date: 12/10/20 07:00 Proposed Procedures p Lumbar Spine Decompression 12330 m48.062(Not Applicable) - Milton Dolan, DO Any changes to Pre-Anesthetic Assessment?: No Last Intake: Intake Last Liquid Date 12/09/20 Last Liquid Time 23:30 Last Solid Date 07/25/14 Last Solid Time 23:30 Vitals: Temperature 98.5 F 12/10/20 06:14 Temperature Source Temporal Artery S can 12/10/20 06:14 Pulse Rate 105 H 12/10/20 06:14 Respiratory Rate 18 12/10/20 06:14 Blood Pressure 145/88 12/10/20 06:14 Blood Pressure Nazia n 107 12/10/20 06:14 Pulse Oximetry 95 12/10/20 06:14 Oxygen Delivery Me thod 12/10/20 06:14 Exam: Pre-Anes Outpt Exam: alert, oriented x 3, clear to auscultation bilaterally and regular rate & rhythm Cardiac Studies: No Data to Display
--- NOTE | 2020-12-10 06:48 | W.PM.OPSUD ---
Surgery/Procedure H&P Update DATE OF PROCEDURE: December 10, 2020 DATE H&P PERFORMED: 12/10/20 PREOP DIAGNOSIS: lumbar stenosis PLANNED PROCEDURE: Operation Date: 12/10/20 07:00 Proposed Procedures p Lumbar Spine Decompression 79834 m48.062(Not Applicable) - Milton Dolan DO
--- NOTE | 2020-12-10 06:50 | P.HP_ITS ---
Providers/Chief Complaint Primary Care Provider: Nathalie Smalls MD Chief Complaint: lumbar spine decompression History of Present Illness Padmini Pereyra is a 40 year old female Onset: years Duration: years Characteristics: stabbing pain, sharp pain Severity: 3/10 Location: low back and upper back Radiating symptoms: lower extremity spasms/cramping to anterior thigh Aggravating factors: there all the time standing or sitting for long periods Alleviating factors: stretches with no relief Neuro deficits: denies numbness, tingling, weakness, incontinence of bowel/bladder, saddle anesthesia. Prior tx: nerve stimulator with no relief by Dr. Cruz or Veronica she is unsure, Epidural injections with no relief. Dr. Cruz Left L5-S1 laminotomy/foraminotomy/discectomy for decompression . L5-S1 PLIFF. Please intervertebral prosthetic device. Removal of L5-S1 Zimmr Dynesys stabilization construct Review of Systems Narrative: General ROS: negative for weight changes, fever ENT ROS: negative for nasal congestion, drainage or bleeding, sore throat, dysphagia or ear pain Eyes: PERRL Hematological and Lymphatic ROS: negative for swollen glands or abnormal bleeding Endocrine ROS: negative for polyuria/polydpsia or new changes in weight Respiratory ROS: negative for cough, shortness of breath, or wheezing Cardiovascular ROS: negative for chest pain or dyspnea on exertion Gastrointestinal ROS: negative for reflux, abdominal pain, change in bowel habits, or black or bloody stools Musculoskeletal ROS: negative for back pain, neck pain, or joint pain or swelling except for current problem Neurological ROS: negative for TIA or stoke symptoms Skin: no rashes Medications/Allergies Home Medications Medication Instructions Recorded Confirmed Last Taken Type amitriptyline 25 mg tablet 10 mg PO BEDTIME 06/14/19 12/10/20 12/09/20 20:00 History carisoprodol 350 mg tablet 350 mg PO TID PRN 06/14/19 12/10/20 12/10/20 05:00 History erenumab-aooe 70 mg/mL 70 mg SUBCUT DIRECTED 06/14/19 12/10/20 11/16/20 History subcutaneous auto-injector hydrocodone 10 mg-acetaminophen 1 tab PO Q4-5H PRN 06/14/19 12/10/20 12/10/20 05:00 History 325 mg tablet levothyroxine 200 mcg capsule 200 mcg PO DAILY 06/14/19 12/10/20 12/10/20 05:00 History norethindrone acetate 1 mg-ethinyl 1 tab PO DAILY 06/14/19 12/10/20 12/09/20 20:00 History estradiol 20 mcg tablet zonisamide 100 mg capsule 100 mg PO DAILY cap 06/14/19 12/10/20 12/09/20 20:00 History divalproex 500 mg tablet,delayed 1,250 mg PO BEDTIME tab 06/19/19 12/10/20 12/09/20 20:00 History release morphine 30 mg immediate release 30 mg PO Q8H PRN 06/19/19 12/10/20 12/10/20 05:00 History tablet ibuprofen 800 mg PO Q8H PRN #30 tab 06/26/19 12/10/20 Unknown Rx sucralfate 1 gram tablet 1 gm PO Q6H PRN #120 tab 01/22/20 12/05/20 Unknown Rx ondansetron HCl 4 mg PO Q6H PRN #10 tab 03/19/20 12/10/20 Unknown Rx bzwtgyn-rgqwwlwni-uoqeziootquw 1 cap PO PRN PRN 12/05/20 12/05/20 Unknown History [Migraine] pantoprazole [Protonix] 40 mg PO PRN PRN 12/05/20 12/05/20 Unknown History Allergies Allergy/AdvReac Type Severity Reaction Status Date / Time ofloxacin [From Floxin] Allergy ADR-Muscle Verified 12/10/20 06:08 Pain Sulfa (Sulfonamide Allergy ALGY-Hives Verified 12/10/20 06:08 Antibiotics) PFSH Acute PFSH: Medical History Chronic back pain Gastritis determined by endoscopy Hypothyroidism Migraines Seizures Surgical History History of cholecystectomy (02/04/18) History of esophagogastroduodenoscopy (EGD) 06/20/2019: Severe gastritis with bile reflux History of lumbar fusion (05/11/16) Dr. Cruz Left L5-S1 laminotomy/foraminotomy/discectomy for decompression . L5-S1 PLIFF. Please intervertebral prosthetic device. Removal of L5-S1 Zim Dynesys stabilization construct. History of thyroidectomy S/P insertion of spinal cord stimulator (2008) 01/10/2015 Dr. Cruz. Replacement of subcutaneous programmable pulse generator with connection to intraspinal epidural electrode arrays. Family History Mother Bipolar disorder Depression Father Diabetes Denies family history of Anesthesia complication Bleeding disorder Social History Smoking and tobacco status: never smoked Alcohol intake: never Lives independently: Yes Household members: family Marital status: Single Current occupational status: employed Female Reproductive History: Date of last menstrual period: 06/26/19 Vitals/I&O/Wt Last Vital Signs Temp 98.5 F 12/10/20 06:14 Pulse 105 H 12/10/20 06:14 Resp 18 12/10/20 06:14 BP 145/88 12/10/20 06:14 Pulse Ox 95 12/10/20 06:14 Physical Exam Narrative: EXAM NARRATIVE: CONSTITUTIONAL: The patient is a normal appearing [] in no apparent distress. GENERAL: Patient in no acute distress. CARDIAC: Regular rate and rhythm. CHEST: Normal inspiratory effort, normal respiratory rate. ABDOMEN: Soft and nontender. SKIN: Clear, warm and intact. NEURO?PSYCH: The patient is alert and oriented to person, place and time. Sensorv /SILT Motor StrengthShoulder abduction C5 5/5Wrist extension C6 5/5Elbow extension C7 5/5Hand Developmental Behavioral Physician C8 5/5Finger abduction T15/5 Radial/ Ulnar/ Median n intact LowerSensory (SILT)Motor StrengthHin flexion L2/3Ant/inner thigh 5/5Hip adduction L2/3 5/5Knee extension L4 Lat thigh, 5/5Toe dorsiflexion L5 5/5Ankle dorsiflexion L5/ H92Jacbsuu flexion S1 5/5 DTRBleeps 2+Triceps 2+Brachioradialis 2+Patellar 2+Achilles 2+ MUSCULOSKELETAL: [] UPPEREXTREMITIES: The patient had full active ROM in fingers, wrist, elbow, and shoulder. The patient demonstrated ability to fully flex/extend/abduct/adduct fingers, make ok sign, cross 2nd/3rd digits, extend 1st digit fully.. Radial pulse 2+, CR<2 seconds. LOWER EXTREMITIES: Pt has full, active ROM of toes, ankle, knee, and hip. Dorsalis pedis/posterior tibialis pulses 2+, CR<2 seconds. SPINE: Skin warm, dry, intact. A&P Assessment and plan (1) Lumbar stenosis with neurogenic claudication: MIS decompression L3/4 Status: Acute Attestations Medical Necessity Statement*: failed conservative tx Coding Level of Care Code Acute Manufacturing Quality Manager for [facility] Fwd Diagnoses Lumbar stenosis with neurogenic claudication M48.062
[2020-12-10] MEDS: sodium chloride 0.9% 1,000 ML 30 ML IV (06:55)
[2020-12-10] MEDS: HYDROmorphone 1 mg/mL INJ 1 mL 0.5 MG IVP (08:03)
--- NOTE | 2020-12-10 08:07 | PM.OP ---
Operative Report Date of procedure: December 10, 2020 Pre-op Diagnosis: lumbar stenosis Post-op diagnosis: same Procedure Done: L3/4 Laminectomy with bilateral partial facetectomies Surgeon: Milton Dolan Anesthesia: General Estimated blood loss (mL): 5 Condition: stable Disposition: PACU Procedure: L3/4 Laminectomy with bilateral partial facetectomies Patient is brought to the operative suite. After undergoing anesthesia they are placed in the supine position. All areas of impingement are well padded. Patient is then prepped and draped in the normal sterile fashion. A skin incision is made over the L3/4 level. This is confirmed under c-arm guidance. A series of dilators are passed and the tubular retractor is docked on the L3 lamina. A bovie is used to clear the soft tissue off the lamina and the L 3/4 facet joint. A high speed teofilo is then used to perform the laminectomy and take down the medial aspect of the L 3/4 facet joint. A kerrison rongeure was then used to take down the remaining lamina and smooth the edged of the laminectomy up to the point where the ligamentum flavum attaches. Attention was then brought to the medial aspect of the facet joint. The remaining medial aspect of the superior and inferior aspect of the facet joint were taken down with the kerrison from the pedicle of L3 to L 4. The facet joint had significant hypertrophy. Attention was then brought to the Ligamentum Flavum. The ligament was taken down from the lamina of L3 to L4 and out medially to the remaining facet joint. The ligament was thicck. The dura was then exposed. The dura was in good repair. The L3 nerve was then traced with a curette out the L3/4 foramen and found to be adequately decompressed. The L4 nerve was traced with a curette around the L4 pedicle. The lateral recess was opened with a kerrison helping to further decompress the L4 nerve. The tubular retractor was then tilted to the contralateral side. The bovie was used to take down the soft tissue on the spinous process. The high speed teofilo was used to take down the spinous process and then the contralateral lamina of L3. The kerrison rongeur was used to take down the remaining lamina to the point where the ligamentum flavum attached and the ligamentum flavum was taken down from L3 to L4. The kerrison rongeur was then used to reach across and take down the medial aspect of the contralateral L3/4 facet joint.The currete was used to trace the contralateral L3 nerve out the L3/4 foramen to make sure it was decompressed adequatesly and the L4 was traced around the L4 pedicle. The lateral recess was opened further with the kerrison to ensure the L4 is adequately decompressed. Wound is then irrigated copiously with saline and surgiflo is used to stop any bleeding. The tubular retractor is removed and the wound is closed with vicryl and monocryl suture. Glue is then used to protect the wound. A sterile dressing is then placed. Patient was then placed in the supine position and transferred to the PACU in stable condition.
[2020-12-10] MEDS: HYDROmorphone 1 mg/mL INJ 1 mL 0.25 MG IVP (08:13)
[2020-12-10] MEDS: ondansetron 2 mg/ML SDV 2 mL 4 MG IVP (08:17)
--- NOTE | 2020-12-10 08:39 | ANE.PACU2 ---
Inpatient post-anesthesia follow up: Airway intact: Yes Vital signs: Temperature 97.8 F Pulse Rate 91 Respiratory Rate 18 Blood Pressure 149/80 Pulse Oximetry 98 Oxygen Delivery Me thod Room Air Oxygen Flow Rate 8 Fraction of Inspir ed Oxygen Hydration adequate: Yes Nausea and vomiting: No Pain level: 4 Mental status: Baseline
== END 2020-12-10 09:10 | disposition home or self-care (01) ==
PROVIDERS: PCP Internal Medicine; Visit Provider Orthopaedic Surgery
PROC: (CPT 63005; principal; 2020-12-10 07:00)
DX: M48.062 Spinal stenosis, lumbar region with neurogenic claudication (principal); E03.9 Hypothyroidism, unspecified; E66.01 Morbid (severe) obesity due to excess calories; Z68.35 Body mass index [BMI] 35.0-35.9, adult
CPT/HCPCS: 63047; 72020; 76000; J0690; J1100; J1170; J2405; J2704; J2710; J3010; J3490; J7030

== ENCOUNTER 2021-02-04 18:30 | Emergency (ER) | payer OTHER, SELFPAY ==
--- NOTE | 2021-02-04 18:32 | ECG_ITS ---
[facility] Test Date: 2021-02-04 Pat Name: Padmini Pereyra Department: Room: Gender: Female Inspector Fibrous Wallboard: : 1980 Requested By: Rhonda Kirby Order Number: [id number] Reading MD: KIRBY GUADALUPE Measurements Intervals [place] Rate: 75 P: 25 MN: 168 QRS: 9 QRSD: 84 T: 17 QT: 358 QTc: 400 Interpretive Statements SINUS RHYTHM MINIMAL VOLTAGE CRITERIA FOR LVH, CONSIDER NORMAL VARIANT [MEETS CRITERIA IN ONE OF: R(aVL), S(V1), R(V5), R(V5/V6)+S(V1)] Compared to ECG 02/27/2019 16:01:43 No significant changes Electronically Signed On 02-04-2021 21:01:04 CDT by KIRBY GUADALUPE [id number]
--- NOTE | 2021-02-04 18:32 | XRR_ITS ---
PROCEDURE INFORMATION: Exam: XR Chest Exam date and time: 02/04/2021 6:32 PM Age: 40 years old Clinical indication: Cough and shortness of breath; Additional info: Cp TECHNIQUE: Imaging protocol: XR of the chest. Views: 1 view. Total images: 1 COMPARISON: 1. CR XR chest 2V* [id number] 04/01/2020 5:41:47 PM 2. CR IR myelogram spine thorac/lumb 11/06/2020 8:50 AM FINDINGS: Lungs: No visible active interstitial or alveolar airspace disease. Pleural spaces: Unremarkable. No pleural effusion. No pneumothorax. Heart/Mediastinum: Unremarkable. No cardiomegaly. Bones/joints: Mild scoliotic curvature of the spine. Other findings: Epidural TENS unit. XR/XR chest 1V portable [id number] IMPRESSION: Nonacute.
[2021-02-04 18:48] VITALS: BP 151/79; PULSE 82; RESP 16; TEMP 36.8; O2SAT 99; BMI 36.3
--- NOTE | 2021-02-04 18:58 | ED_ITS ---
HPI - Chest Pain General: Chief Complaint: Chest Pain Stated Complaint: CHEST PAIN.TROUBLE BREATHING Time Seen by Provider: 02/04/21 18:45 Source: patient Mode of arrival: ambulatory Limitations: no limitations History of Present Illness: HPI narrative: 40-year-old female who states that over the last week to 2 weeks she has been having cough congestion along with some chest pains. States pain is been a pressure in her chest over the last 3 days. She denies any vomiting or diarrhea. States she was seen by her nurse practitioner sent her here. She denies any pain currently. Denies any worsening improving factors. She was concerned she may had Covid but did have a negative Covid test yesterday. Associated symptoms: Deny abdominal pain, nausea or vomiting Review of Systems Const: Reports: chills Eyes: Denies: blurry vision or eye discomfort ENMT: Denies: throat pain or dental pain Card: Reports: chest pain Resp: Reports: non-productive cough GI: Denies: abdominal pain, nausea, vomiting or diarrhea : Denies: dysuria Musc: Denies: neck pain or back pain Skin/Breast: Denies: rash Neuro: Denies: headache(s) Psych: Denies: depression Subhash/Lymph: Denies: easy bruising All/Imm: Denies: urticaria PFSH ED PFSH: Medical History (Updated 02/04/21 @ 20:16 by Rhonda Kirby MD) Chronic back pain Gastritis determined by endoscopy Hypothyroidism Migraines Seizures Surgical History History of cholecystectomy (02/04/18) History of esophagogastroduodenoscopy (EGD) 06/20/2019: Severe gastritis with bile reflux History of lumbar fusion (05/11/16) Dr. Cruz Left L5-S1 laminotomy/foraminotomy/discectomy for decompression . L5-S1 PLIFF. Please intervertebral prosthetic device. Removal of L5-S1 Zim Dynesys stabilization construct. History of thyroidectomy S/P insertion of spinal cord stimulator (2008) 01/10/2015 Dr. Cruz. Replacement of subcutaneous programmable pulse generator with connection to intraspinal epidural electrode arrays. Family History Mother Bipolar disorder Depression Father Diabetes Denies family history of Anesthesia complication Bleeding disorder Social History Smoking and tobacco status: never smoked Alcohol intake: never Lives independently: Yes Household members: family Marital status: Single Current occupational status: employed Female Reproductive History: Date of last menstrual period: 01/11/21 Physical Exam Const: COMMON NORMALS: no acute distress, patient oriented x3 and healthy appearing HENMT: COMMON NORMALS: normocephalic and atraumatic HEAD & SCALP: normocephalic and atraumatic Eye: COMMON NORMALS: Equal, round and reactive pupils present and EOMs intact bilaterally PUPIL: Yes Equal, round and reactive pupils present Neck/C-Spine: COMMON NORMALS: full ROM and supple Chest: COMMONS NORMALS: normal inspection of the chest and normal palpation of entire chest wall Resp: COMMON NORMALS: normal respiratory effort, No retractions, No use of accessory muscles and clear to auscultation bilaterally AUSCULTATION: clear to auscultation bilaterally Cardio: COMMON NORMALS: regular rate, regular rhythm and No murmurs present (Cardio) RATE: regular rate RHYTHM: regular rhythm GI: COMMON NORMALS: Normal to inspection, nondistended, normoactive bowel sounds present, Soft to palpation, non-tender and no masses PALPATION: Yes Soft to palpation Extremity: COMMON NORMALS: normal to inspection and full ROM Neuro: COMMON NORMALS: patient oriented x3, moves all extremities and no focal motor deficits Psych: COMMON NORMALS: mental status grossly normal, Normal thought process present and cooperative THOUGHT PROCESS: Normal thought process present Skin: COMMON NORMALS: no rashes or lesions noted and no wounds GENERAL SKIN EXAM: no rashes or lesions noted Course Vital Signs: Vital signs: Vital Signs Temperature 98.2 F 02/04/21 18:48 Pulse Rate 82 02/04/21 19:02 Respiratory Rate 16 02/04/21 19:58 Blood Pressure 151/79 02/04/21 18:48 Pulse Oximetry 99 02/04/21 19:02 MDM - Chest Pain MDM Narrative: Medical decision making narrative: Patient presents here with c hest pain along with cough and congestion. Her troponin here is negative no sign of acute coronary syndrome. She had a negative Covid and her x-ray here is clear. We will start her on azithromycin and she is stable for discharge. She is to follow-up with PCP and return to ER if worsening. She understands and agrees to plan. Lab Data: Labs: Lab Results 02/04/21 02/04/21 02/04/21 Range/Units 18:59 18:59 18:59 WBC 9.0 (4.0-10.0) 10^3/ uL RBC 4.11 (4.1-5.3) 10^6/u L Hgb 12.4 (11.5-15.3) g/dL Hct 39.1 (37.0-47.0) % MCV 95.1 (81-99) fl MCH 30.2 (28.0-34.0) pg MCHC 31.7 (30.0-36.0) g/dL RDW 12.7 (12.1-15.1) % Plt Count 193 (130-400) 10^3/c mm MPV 10.4 (7.4-10.4) fL Neut % (Auto) 50.6 % Lymph % (Auto) 40.7 % [place] % (Auto) 5.9 % Eos % (Auto) 1.8 % Baso % (Auto) 0.6 % Neut # (Auto) 4.55 (1.8-7.7) 10^3/u L Lymph # (Auto) 3.7 (0.8-4.8) 10^3/u L [place] # (Auto) 0.5 (0.2-0.9) 10^3/u L Eos # (Auto) 0.2 (0.0-0.8) 10^3/u L Baso # (Auto) 0.1 (0.0-0.1) 10^3/u L Nucleated RBC % (a uto) 0 % Nucleated RBCs # 0.0 /100WBC Sodium 140 (136-145) mmol/L Potassium 4.7 (3.5-5.1) mmol/L Chloride 102 (98-107) mmol/L Carbon Dioxide 25 (22-29) mmol/L Anion Gap 17.7 (5-19) BUN 9 (6-20) mg/dL Creatinine 0.5 (0.5-0.9) mg/dL GFR Calculation 136.0 H (90-130) mL/min Glucose 89 (65-115) mg/dL Calculated Osmolal ity 288 (285-295) mOsm/k g Calcium 9.2 (8.5-10.5) mg/dL Total Bilirubin 0.2 (0.15-1.2) mg/dL AST 12 (0-32) U/L ALT 10 (0-33) U/L Alkaline Phosphata se 56 (35-105) IU/L Troponin T Baselin e 6 (0-10) ng/L NT-Pro-B Natriuret Pep 5 (0-125) pg/mL Total Protein 6.0 L (6.6-8.7) g/dL Albumin 4.1 (3.5-5.2) g/dL Globulin 1.9 (1.3-4.6) g/dL Imaging Data^: CXR: Attestation: I personally reviewed and interpreted this imaging study as follows: Radiologist's impression: [id number] [address] XRay Report Signed Patient: Padmini Pereyra Unit #: [id number] : 1980 Age/Sex: 40 / F ADM Date: 02/04/21 Loc: ER Room/Bed: Attending Dr: Ordering Provider/Ordering MD: Rhonda Kirby MD Date of Service: 02/04/21 Procedure(s): XR chest 1V portable [id number] Accession Number(s): [id number] Report Number: [id number] PROCEDURE INFORMATION: Exam: XR Chest Exam date and time: 02/04/2021 6:32 PM Age: 40 years old Clinical indication: Cough and shortness of breath; Additional info: Cp TECHNIQUE: Imaging protocol: XR of the chest. Views: 1 view. Total images: 1 COMPARISON: 1. CR XR chest 2V* [id number] 04/01/2020 5:41:47 PM 2. CR IR myelogram spine thorac/lumb 11/06/2020 8:50 AM FINDINGS: Lungs: No visible active interstitial or alveolar airspace disease. Pleural spaces: Unremarkable. No pleural effusion. No pneumothorax. Heart/Mediastinum: Unremarkable. No cardiomegaly. Bones/joints: Mild scoliotic curvature of the spine. Other findings: Epidural TENS unit. XR/XR chest 1V portable [id number] IMPRESSION: Nonacute. Dictated By: Magan Ohara Signed By: Magan Ohara Signed Date/Time: 02/04/211928 DD/ 27 EKG Data^: EKG 1: Attestation: I personally reviewed and interpreted this EKG as follows: EKG interpretation date: 02/04/21 EKG interpretation time: 18:59 Interpretation: nsr hr [address] or t wave abnormalities qrs 84 qtc 386 Discharge Plan Discharge Patient Disposition: Home Clinical Impression: Chest pain Qualifiers: Chest pain type: unspecified Qualified Code(s): R07.9 - Chest pain, unspecified Upper respiratory infection Qualifiers: URI type: unspecified URI Qualified Code(s): J06.9 - Acute upper respiratory infection, unspecified Condition: Stable Prescriptions: New azithromycin 250 mg tablet See Rx Instructions .ROUTE .COMPLEX Qty: 6 RF: 0 No Action morphine 30 mg tablet 30 mg PO Q8H PRN (Reason: Pain) RF: 0 carisoprodol [Soma] 350 mg tablet 350 mg PO TID PRN (Reason: Spasms) RF: 0 amitriptyline 25 mg tablet 10 mg PO BEDTIME RF: 0 zonisamide 100 mg capsule 100 mg PO DAILY RF: 0 norethindrone ac-eth estradiol [Loestrin 06/26 ()] 1-20 mg-mcg tablet 1 tab PO DAILY RF: 0 levothyroxine 200 mcg capsule 200 mcg PO DAILY RF: 0 divalproex [Depakote] 500 mg tablet,delayed release (DR/EC) 1,250 mg PO BEDTIME RF: 0 sucralfate [Carafate] 1 gram tablet 1 gm PO Q6H PRN (Reason: stomach upset) Qty: 120 RF: 1 ibuprofen 800 mg tablet 800 mg PO Q8H PRN (Reason: pain) Qty: 30 RF: 0 ondansetron HCl 4 mg tablet 4 mg PO Q6H PRN (Reason: nausea and vomiting) Qty: 10 RF: 0 pantoprazole [Protonix] 40 mg tablet,delayed release (DR/EC) 40 mg PO PRN PRN (Reason: Indigestion) RF: 0 Aimovig Autoinjector 140 mg/mL Auto-Injector 140 mg SUBCUT Q30D RF: 0 hydrocodone-acetaminophen 5-325 mg tablet 1 - 2 tab PO Q4H RF: 0 Vitamin D3 125 mcg (5,000 unit) Tablet 125 mcg PO DAILY RF: 0 Discharge Orders: Discharge ED (Routine); Ordered 02/04/21 Ordered By: Rhonda Kirby Referrals: Nathalie Smalls MD [Primary Care Provider] - 1-3 days Discharge Diet: Advance as tolerated Discharge Activity: Resume usual activity Patient Instructions: Chest Pain (ED) Coding Level of Care Code ED Director Of Fundraising 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
[2021-02-04 19:02] VITALS: PULSE 82; RESP 17; O2SAT 99
[2021-02-04 19:11] LABS: Basophils # 0.1 10^3/uL (0.0-0.1); Basophils % 0.6 %; Eosinophils # 0.2 10^3/uL (0.0-0.8); Eosinophils % 1.8 %; Hematocrit 39.1 % (37.0-47.0); Hemoglobin 12.4 g/dL (11.5-15.3); Lymphocytes # 3.7 10^3/uL (0.8-4.8); Lymphocytes % 40.7 %; Mean Corpuscular HGB Conc 31.7 g/dL (30.0-36.0); Mean Corpuscular Hemoglobin 30.2 pg (28.0-34.0); Mean Corpuscular Volume 95.1 fl (81-99); Mean Platelet Volume 10.4 fL (7.4-10.4); Monocytes # 0.5 10^3/uL (0.2-0.9); Monocytes % 5.9 %; Neutrophils # 4.55 10^3/uL (1.8-7.7); Neutrophils % 50.6 %; Nucleated Red Blood Cells % 0 %; Platelet Count 193 10^3/cmm (130-400); Red Blood Count 4.11 10^6/uL (4.1-5.3); Red Cell Distribution Width 12.7 % (12.1-15.1)
[2021-02-04 19:36] LABS: Troponin(5th) Baseline 6 ng/L (0-10)
[2021-02-04 19:45] LABS: Alanine Aminotransferase 10 U/L (0-33); Albumin Level 4.1 g/dL (3.5-5.2); Alkaline Phosphatase 56 IU/L (35-105); Anion Gap 17.7 (5-19); Aspartate Amino Transferase 12 U/L (0-32); Blood Urea Nitrogen 9 mg/dL (6-20); Calcium 9.2 mg/dL (8.5-10.5); Carbon Dioxide 25 mmol/L (22-29); Chloride 102 mmol/L (98-107); Globulin 1.9 g/dL (1.3-4.6); Glucose 89 mg/dL (65-115); NT Pro B Type Natriuretic Pept 5 pg/mL (0-125); Osmolality Calculated 288 mOsm/kg (285-295); Potassium 4.7 mmol/L (3.5-5.1); Sodium 140 mmol/L (136-145); Total Bilirubin 0.2 mg/dL (0.15-1.2)
[2021-02-04 19:58] VITALS: RESP 16
[2021-02-04] MEDS: ondansetron 2 mg/ML SDV 2 mL 4 MG IVP (19:58)
[2021-02-04] MEDS: morphine 4 mg/mL SDV 1 mL IVP (19:58)
[2021-02-04 20:30] VITALS: BP 151/73; PULSE 83; RESP 17; O2SAT 100
[2021-02-04 20:39] LABS: Valproic Acid Level 38.7 ug/mL (50-100)
== END 2021-02-04 20:37 | disposition home or self-care (01) ==
PROVIDERS: Emergency Provider Emergency Medicine; PCP Internal Medicine
DX: R07.9 Chest pain, unspecified (principal); J06.9 Acute upper respiratory infection, unspecified; E03.9 Hypothyroidism, unspecified
CPT/HCPCS: 71045; 80053; 80164; 83880; 84484; 85025; 93005; 96374; 96375; 99284; J2270; J2405

== ENCOUNTER 2021-02-24 13:26 | Outpatient (CLI) | payer OTHER, SELFPAY ==
--- NOTE | 2021-02-24 | CT_ITS ---
WS: [id number] CT ABDOMEN AND PELVIS WITH CONTRAST HISTORY: LEFT SIDED ABD PAIN TECHNIQUE: Imaging performed of the abdomen and pelvis with IV contrast. Single phase imaging of the abdomen. Coronal and sagittal reformats are submitted. All CT scans at [facility] use at [address] one of these dose optimization techniques: automated exposure control; mA and/or kV adjustment per patient size (includes targeted exams where dose is matched to clinical indication); or iterative re construction. IV CONTRAST: Omnipaque 300; 95 mL IV. Oral contrast: Yes. DLP: 1166.38 mGycm COMPARISON: 06/26/2019 Lower thorax: Lung bases are clear. Heart is normal size. No hiatal hernia. Liver/biliary system: Mild hepatic steatosis. Normal size liver with no bile duct dilatation. Gallbladder: Status post cholecystectomy. Pancreas: Normal size pancreas and pancreatic duct. No adjacent inflammation. Spleen: Normal size spleen. No mass or infarct. Adrenal glands: Normal. Right kidney: Normal. Left kidney: Normal. Aorta: Normal. Lymphadenopathy: None. Free fluid: None. GI tract: Normal appendix. No GI tract obstruction or inflammation. Abdominal wall: Unremarkable abdominal wall. No hernia. Pelvis: Lobulated mildly hypervascular mass in the uterus. Consistent with a fibroid uterus which is been present on prior studies. Large fibroid extends exophytic and LEFT posterior lateral measuring 5 .5 x 5.6 cm. Posterior lumbar fusion at L5-S1. Bones: Unremarkable. CT/CT abdomen pelvis w con* [id number] IMPRESSION: 1. No acute abdominal or pelvic abnormalities are identified. 2. Large LEFT posterior lateral fibroid. 3. Prior cholecystectomy. 4. Mild hepatic steatosis.
[2021-02-24] MEDS: iohexol 300 mg/mL 50 mL Btl IV (14:04)
[2021-02-24] MEDS: iohexol 300 mg/mL 100 mL Btl IV (14:48)
== END 2021-02-24 13:27 | disposition home or self-care (01) ==
PROVIDERS: PCP Internal Medicine; Visit Provider Internal Medicine
DX: R10.12 Left upper quadrant pain (principal); Z90.49 Acquired absence of other specified parts of digestive tract; K76.0 Fatty (change of) liver, not elsewhere classified
CPT/HCPCS: 74177; Q9967

== ENCOUNTER → 2021-04-09 14:22 | Outpatient (BNVA) | payer OTHER, SELFPAY | PROVIDERS: PCP Internal Medicine; Visit Provider Obstetrics & Gynecology | DX: D25.9 Leiomyoma of uterus, unspecified (principal) | CPT/HCPCS: 76830 ==

== ENCOUNTER → 2021-04-21 16:24 | Outpatient (BNVA) | payer OTHER, SELFPAY | PROVIDERS: PCP Internal Medicine; Visit Provider Obstetrics & Gynecology | DX: D25.9 Leiomyoma of uterus, unspecified (principal) | CPT/HCPCS: 88305 ==

== ENCOUNTER → 2021-05-22 10:16 | Outpatient (BNVA) | payer OTHER, SELFPAY | PROVIDERS: PCP Internal Medicine; Visit Provider Obstetrics & Gynecology | DX: D25.9 Leiomyoma of uterus, unspecified (principal) | CPT/HCPCS: 87635 ==

== ENCOUNTER 2021-05-27 12:13 | Observation (INO) | payer OTHER, SELFPAY ==
[2021-05-26 08:38] VITALS: BMI 34.9
[2021-05-27] VITALS (16 sets, daily range): BP systolic 101–158; BP diastolic 61–102; PULSE 63–99; RESP 14–18; TEMP 36.6–37.1; O2SAT 93–100; BMI 35.2
--- NOTE | 2021-05-27 09:06 | W.PM.OPSUD ---
Surgery/Procedure H&P Update DATE OF PROCEDURE: May 27, 2021 DATE H&P PERFORMED: 05/22/21 H&P UPDATE INFORMATION: I have reviewed H&P completed within last 30 days, I have examined patient prior to procedure and Changes to prior documentation as noted here CHANGES TO PREVIOUS DOCUMENTATION: The patient has decided to leave her ovaries in place. PREOP DIAGNOSIS: uterine leiomyoma, dysmenorrhea, AUB, PCOS PLANNED PROCEDURE: Operation Date: 05/27/21 10:25 Proposed Procedures p Laparoscopic Assist Vaginal Hysterectomy 37613 D25.9(Not Applicable) - Rosa Keita MD s Possible Laparoscopic bilateral Oophorectomy(Bilateral) - Rosa Keita MD Related Problem List Diagnoses (1) Dysmenorrhea: (2) Abnormal uterine bleeding (AUB): (3) Uterine leiomyoma:
--- NOTE | 2021-05-27 09:07 | ANES.PREANE2 ---
Pre-Anesthetic Assessment Pre-Anesthetic Assessment: Height/Weight: Height 1.69 m Weight 99.79 kg Preop Diagnosis: uterine leiomyoma, dysmenorrhea, AUB, PCOS Proposed Procedure: Operation Date: 05/27/21 10:25 Proposed Procedures p Laparoscopic Assist Vaginal Hysterectomy 24086 D25.9(Not Applicable) - Rosa Keita MD s Possible Laparoscopic bilateral Oophorectomy(Bilateral) - Rosa Keita MD Was Beta Ayesha taken within 24 hours: N/A Was Clonidine taken within 24 hours: N/A Social: Social History: No alcohol and No tobacco Exam: Pre-Anes Outpt Exam: alert, oriented x 3, clear to auscultation bilaterally and regular rate & rhythm Airway: Submandibular: WNL Cervical ROM: WNL MP: 1 Dentition: Other History/ROS: No significant history except as noted Pulmonary: Pulmonary: None reported CV/HEM: CV/HEM: None reported : Comments: AUB Hepatic: Hepatic: None reported GI: GI: GERD Metabolic: Metabolic: Thyroid Musc/skel: Musc/skel: Lower Back Pain and OA/DJD Comments: Spinal cord stimulator Neuropsych: Neuropsych: Seizure Comments: Hx of migraines Last seizure last night. Was evaluated for increase in seizure frequency only yesterday. Neurologist made no changes to seizure medications. Seizure was witnessed without fall/trauma. Anesthetic Plan: ASA status: 3 PFSH Anesthesia PFSH: Medical History Angiokeratoma Chronic back pain Chronic nausea Gastritis determined by endoscopy Hypothyroidism Malaise and fatigue Migraines Seizures Uterine fibroid Vitamin D deficiency Surgical History History of cholecystectomy (02/04/18) History of esophagogastroduodenoscopy (EGD) 06/20/2019: Severe gastritis with bile reflux History of lumbar fusion (05/11/16) Dr. Cruz Left L5-S1 laminotomy/foraminotomy/discectomy for decompression . L5-S1 PLIFF. Please intervertebral prosthetic device. Removal of L5-S1 Zimmr Dynesys stabilization construct. History of thyroidectomy S/P insertion of spinal cord stimulator (2008) 01/10/2015 Dr. Cruz. Replacement of subcutaneous programmable pulse generator with connection to intraspinal epidural electrode arrays. Family History Mother Bipolar disorder Depression Cancer Thyroid cancer Thyroid disease Father Diabetes Grandfather Stroke Paternal Grandmother Stroke Maternal Denies family history of CAD (coronary artery disease) Clotting disorder Hyperlipidemia Chronic kidney disease (CKD) Anesthesia complication Bleeding disorder Hypertension Social History Smoking and tobacco status: never smoked Alcohol intake: never Lives independently: Yes Household members: family Marital status: Single Current occupational status: employed Female Reproductive History: Date of last menstrual period: 01/11/21 Data Anesthesia Cardiac Studies: No Data to Display
[2021-05-27] MEDS: phenazopyridine 100 mg Tablet 200 MG PO ×3 (09:37→21:35)
[2021-05-27] MEDS: gabapentin 300 mg Capsule PO (09:38)
[2021-05-27] MEDS: CELEcoxib 200 mg Capsule 400 MG PO (09:38)
[2021-05-27] MEDS: ketorolac 30 mg/mL INJ IVP ×3 (09:38→19:03)
[2021-05-27] MEDS: scopolamine 1.5 Patch 1 PATCH TRANSDERMA (09:40)
[2021-05-27] MEDS: acetaminophen 1,000 MG/100 ML PIGGYBACK 400 MG IV (09:56)
[2021-05-27] MEDS: sodium chloride 0.9% 1,000 ML 30 ML IV (09:57)
[2021-05-27 10:06] LABS: Basophils # 0.1 10^3/uL (0.0-0.1); Basophils % 0.5 %; Eosinophils # 0.2 10^3/uL (0.0-0.8); Eosinophils % 1.9 %; Hematocrit 41.5 % (37.0-47.0); Hemoglobin 13.4 g/dL (11.5-15.3); Lymphocytes # 3.7 10^3/uL (0.8-4.8); Lymphocytes % 36.9 %; Mean Corpuscular HGB Conc 32.3 g/dL (30.0-36.0); Mean Platelet Volume 10.9 fL (7.4-10.4); Monocytes # 0.6 10^3/uL (0.2-0.9); Monocytes % 5.4 %; Neutrophils # 5.55 10^3/uL (1.8-7.7); Neutrophils % 54.9 %; Nucleated Red Blood Cells % 0 %; Platelet Count 203 10^3/cmm (130-400); Red Blood Count 4.46 10^6/uL (4.1-5.3); Red Cell Distribution Width 12.8 % (12.1-15.1); White Blood Count 10.1 10^3/uL (4.0-10.0)
[2021-05-27 10:09] LABS: OR HCG Qualitative Urine Negative (Negative)
[2021-05-27 10:21] LABS: Blood Urea Nitrogen 9 mg/dL (6-20); Calcium 8.9 mg/dL (8.5-10.5); Carbon Dioxide 21 mmol/L (22-29); Chloride 103 mmol/L (98-107); Glomerular Filtration Rate 135.3 mL/min (90-130); Glucose 101 mg/dL (65-115); Osmolality Calculated 289 mOsm/kg (285-295); Sodium 140 mmol/L (136-145)
[2021-05-27] MEDS: vasopressin 20 unit/mL INJ INJECTION (11:03)
--- NOTE | 2021-05-27 12:20 | P.OP_ITS ---
Operative Report Date of procedure: May 27, 2021 Pre-op Diagnosis: uterine leiomyoma, dysmenorrhea, AUB, PCOS Post-op diagnosis: same Post-op Findings: uterine fibroid. Normal appearing tubes and ovaries Procedure Done: Laparoscopic assisted vaginal hysterectomy with bilateral salpingectomy, cystoscopy Specimens removed/disposition: uterus and bilateral fallopian tubes to pathology Surgeon: Rosa Keita Anesthesia: General Estimated blood loss (mL): 50 IV fluids (mL): 1,700 Urine output (mL): 100 Complications: none Findings: 9 week sized uterus with large fibroid. Normal appearing tubes and ovaries Condition: stable Disposition: floor Procedure: The patient was taken to the operating room where general anesthesia was administered and found to be adequate. She was prepped and draped in the normal sterile fashion in the dorsal lithotomy position in Ubaldo stirrups. A Begum catheter was placed. A weighted speculum was placed into the vagina and the anterior lip of the cervix was grasped with a single tooth tenaculum. The Zumi uterine manipulator was placed. The weighted speculum was removed. The gloves were changed and attention was turned to the abdomen. A 5 mm infraumbilical incision was made. Using a 5 mm port with the camera, the port was placed into the abdomen. The abdomen was insufflated. Two low, lateral 5 mm ports were placed on the left and right under direct visualization from the camera. The right tube was grasped and elevated. Using the laparoscopic cautery, the mesosalpinx was divided between the ovary and tube. The tube was removed. This was performed the same way on the left. The uteroovarian ligaments as well as the round ligaments were ligated. Attention was then turned to the vaginal portion of the procedure. The weighted speculum was placed into the vagina. The zumi manipulator was removed. The single tooth tenaculum was removed and replaced with the hilary's tenaculum. 10 mL of dilute Pitressin was injected at the vesicovaginal junction. A circumferential incision was made at the vesicovaginal junction and the vaginal mucosa reflected cephalad. The posterior peritoneum was entered sharply with the Metzenbaum scissors and the long weighted speculum replaced. Using the Azeem clamps the uterosacral ligaments were clamped cut and suture- ligated. The anterior peritoneum was entered sharply with the metzenbaum scissors. Then sequentially the uterine arteries and cardinal ligaments were clamped cut and suture-ligated. A single-tooth tenaculum was used to deliver the uterus. The remaining segement of the utero-ovarian ligaments were clamped cut and suture-ligated bilaterally and the specimen was removed. There was good hemostasis with only mild bleeding from the cuff. The peritoneum was closed with a pursestring using 2-0 Vicryl. The vaginal cuff was closed with 0 Vicryl in a running locked pattern incorporating the uterosacral ligaments into the lateral aspects of the vaginal cuff. The Begum catheter was removed and the cystoscope advanced into the bladder. The patient was given pyridium and bilateral spill was noted. There were no injuries or deficits noted in the bladder. The cystoscope was removed and the Begum was replaced. Vaginal packing was placed for good hemostasis. The abdominal incisions with closed with 3-0 vicryl. The patient tolerated the procedure well. Sponge lap and needle counts were correct x3. She was taken to the recovery room in stable condition.
--- NOTE | 2021-05-27 12:42 | SUR.PHASEI ---
PT AWAKES TO VOICE, PT DENIES NAUSEA, AND C/O OF ABD (CRAMPING) PT REMINDED OF VAGINAL PACKING AND ALEXANDER CATHETER, PT QUICKLY BACK TO SLEEP VSS MONITOR SR NO ECTOPY, PT HAS A HX OF SIEZURE, NONE NOTED IV PATNENT ALEXANDER TO DD WITH ORANGE URINE TO TUBING AND BAG, STATLOCK TO LT THIGH.
--- NOTE | 2021-05-27 12:46 | SUR.PHASEI ---
PT CONTINUES TO SLEEP UNLESS DISTURBED VSS. ABD SOFT
--- NOTE | 2021-05-27 13:12 | PC.NURSE ---
Patient brought to OB from OR by OR nurse via bed.
--- NOTE | 2021-05-27 13:33 | ANE.PACU2 ---
Inpatient post-anesthesia follow up: Airway intact: Yes Vital signs: Temperature 98.1 F Pulse Rate 63 Respiratory Rate 15 Blood Pressure 119/73 Pulse Oximetry 100 Oxygen Delivery Me thod Nasal Cannula Oxygen Flow Rate 3 Fraction of Inspir ed Oxygen Hydration adequate: Yes Nausea and vomiting: No Pain level: 3 Mental status: Baseline
[2021-05-27] MEDS: lactated ringers 1,000 ML 125 ML IV ×2 (13:42→23:06)
[2021-05-27] MEDS: HYDROcodone-acetaminophen 5-325 mg Tablet PO ×2 (13:43→23:04)
[2021-05-27] MEDS: HYDROmorphone 1 mg/mL INJ 1 mL 1.5 MG IVP (15:45)
[2021-05-27] MEDS: docusate sodium 100 mg Capsule PO (19:03)
[2021-05-27] MEDS: divalproex DR 500 mg Tablet 1000 MG PO (21:40)
[2021-05-27] MEDS: divalproex DR 250 mg Tablet PO (21:40)
--- NOTE | 2021-05-27 22:25 | PC.NURSE ---
Patient ambulated 2 laps around unit. Tolerated well.
[2021-05-28 00:01] VITALS: RESP 19; O2SAT 97
[2021-05-28] MEDS: HYDROmorphone 1 mg/mL INJ 1 mL 1.5 MG IVP (00:01)
[2021-05-28 00:10] VITALS: BP 128/73; PULSE 81; RESP 17; TEMP 36.7; O2SAT 96
--- NOTE | 2021-05-28 00:18 | PC.NURSE ---
See OB physician notification for void in toilet around austin catheter. Patient states that she feels relief at this time. Austin catheter patent and draining.
--- NOTE | 2021-05-28 01:30 | PC.NURSE ---
Patient ambulated 5 laps around hallway.
[2021-05-28] MEDS: HYDROcodone-acetaminophen 5-325 mg Tablet PO ×2 (04:32→09:55)
[2021-05-28 04:33] VITALS: BP 111/71; PULSE 67; RESP 18; TEMP 36.7; O2SAT 95
[2021-05-28] MEDS: lactated ringers 1,000 ML 125 ML IV (04:58)
[2021-05-28 05:07] LABS: Blood Urea Nitrogen 7 mg/dL (6-20); Calcium 7.8 mg/dL (8.5-10.5); Carbon Dioxide 21 mmol/L (22-29); Chloride 105 mmol/L (98-107); Glomerular Filtration Rate 109.6 mL/min (90-130); Glucose 120 mg/dL (65-115); Osmolality Calculated 287 mOsm/kg (285-295); Sodium 139 mmol/L (136-145)
[2021-05-28 05:18] LABS: Hematocrit 34.1 % (37.0-47.0); Hemoglobin 10.9 g/dL (11.5-15.3); Mean Corpuscular Hemoglobin 30.8 pg (28.0-34.0); Mean Corpuscular Volume 96.3 fl (81-99); Mean Platelet Volume 11.2 fL (7.4-10.4); Platelet Count 161 10^3/cmm (130-400); Red Blood Count 3.54 10^6/uL (4.1-5.3); Red Cell Distribution Width 12.8 % (12.1-15.1); White Blood Count 10.5 10^3/uL (4.0-10.0)
--- NOTE | 2021-05-28 09:07 | PM.DCS ---
Discharge Providers Date of Admission: 05/27/21 12:13 Date of Discharge: May 28, 2021 Attending Provider at Admission: Rosa Keita MD Attending Provider at Discharge: Rosa Keita MD Primary Care Provider: Nathalie Smalls MD Diagnoses at Discharge Discharge Diagnosis (1) Dysmenorrhea: Status: Acute (2) Abnormal uterine bleeding (AUB): Status: Acute (3) Uterine leiomyoma: Status: Acute Reason for Visit Reason for Visit: Uterine Leiomyoma Hospital Course Hospital Course The patient was admitted for surgery. She did well postoperatively and was ready for discharge. Physical Exam Narrative: EXAM NARRATIVE: The patient is doing well this morning. She is complaining of some cramping. She received fluid overnight, but urine output as been a little decreased. Wanted to leave the austin cath in for a while longer to watch urine output, but patient insisted on it being removed. Since then, she has had a little urine out, but not a lot. Removing the packing may help. She is not drinking any water by mouth, only sips of tea. Const: COMMON NORMALS: no acute distress, patient oriented x3, no limitations, alert and well nourished GENERAL APPEARANCE: cooperative, comfortable, well kempt and well developed ORIENTATION/CONSCIOUSNESS: Yes awake, Yes oriented to person, Yes oriented to place and Yes oriented to time Resp: COMMON NORMALS: normal respiratory effort EFFORT & INSPECTION: Yes able to speak in complete sentences GI: COMMON NORMALS: Soft to palpation and non-tender PALPATION: Yes Soft to palpation : COMMON NORMALS: Yes normal external appearance and Yes normal appearance of the vagina Extremity: COMMON NORMALS: no calf tenderness Neuro: COMMON NORMALS: patient oriented x3 SENSORIUM/ORIENTATION: Yes alert, Yes oriented to person, Yes oriented to place and Yes oriented to time Psych: APPEARANCE: Yes well kempt Urinary Catheter Management^: Austin: Cath Placed During This Visit: yes, but has since been removed by the nurse Reason for Continuing Indwelling Catheter: Perioperative Use in Selected Surgeries Urinary Catheter Date of Insertion: 05/27/21 Urinary Catheter Time of Insertion: 10:41 Date Urinary Catheter Removed: 05/28/21 Time Urinary Catheter Discontinued: 05:38 Discharge Data Data Completed and Pending: Pending at discharge Category Date Time Status ES surgery / GI i mages Routine Exams 05/27/21 09:02 Taken Urine Culture [facility] 05/27/21 10:15 Results Pathology: Surgic al [PTH] Routine Pth 05/27/21 12:14 Received Labs from last 24 hours 05/28/21 05/28/21 05/27/21 04:35 04:35 10:07 WBC 10.5 H RBC 3.54 L Hgb 10.9 L Hct 34.1 L MCV 96.3 MCH 30.8 MCHC 32.0 RDW 12.8 Plt Count 161 MPV 11.2 H Neut % (Auto) Lymph % (Auto) [place] % (Auto) Eos % (Auto) Baso % (Auto) Neut # (Auto) Lymph # (Auto) [place] # (Auto) Eos # (Auto) Baso # (Auto) Nucleated RBC % (a uto) Nucleated RBCs # Sodium 139 Potassium 4.0 Chloride 105 Carbon Dioxide 21 L Anion Gap 17.0 BUN 7 Creatinine 0.6 GFR Calculation 109.6 Glucose 120 H Calculated Osmolal ity 287 Calcium 7.8 L Urine HCG, Qual Negative Blood Type Rho(D) Type Antibody Screen 05/27/21 05/27/21 05/27/21 09:40 09:40 09:40 WBC 10.1 H RBC 4.46 Hgb 13.4 Hct 41.5 MCV 93.0 MCH 30.0 MCHC 32.3 RDW 12.8 Plt Count 203 MPV 10.9 H Neut % (Auto) 54.9 Lymph % (Auto) 36.9 [place] % (Auto) 5.4 Eos % (Auto) 1.9 Baso % (Auto) 0.5 Neut # (Auto) 5.55 Lymph # (Auto) 3.7 [place] # (Auto) 0.6 Eos # (Auto) 0.2 Baso # (Auto) 0.1 Nucleated RBC % (a uto) 0 Nucleated RBCs # 0.0 Sodium 140 Potassium 4.0 Chloride 103 Carbon Dioxide 21 L Anion Gap 20.0 H BUN 9 Creatinine 0.5 GFR Calculation 135.3 H Glucose 101 Calculated Osmolal ity 289 Calcium 8.9 Urine HCG, Qual Blood Type O Negative Rho(D) Type Negative Antibody Screen Negative Vitals: Last Vital Signs Temp 98.0 F 05/28/21 04:33 Pulse 67 05/28/21 04:33 Resp 18 05/28/21 04:33 BP 111/71 05/28/21 04:33 Pulse Ox 95 05/28/21 04:33 Discharge Plan Discharge Patient Disposition: Home Condition: Stable Prescriptions: New ibuprofen 800 mg Tablet 800 mg PO Q8H Qty: 30 RF: 0 hydrocodone-acetaminophen 5-325 mg Tablet 2 tab PO Q6H PRN (Reason: Moderate To Severe Pain) Qty: 30 RF: 0 docusate sodium 100 mg Capsule 100 mg PO BID Qty: 60 RF: 0 Continued morphine 30 mg tablet 30 mg PO Q8H PRN (Reason: Pain) RF: 0 divalproex [Depakote] 500 mg tablet,delayed release (DR/EC) 1,250 mg PO .h.s. RF: 0 norethindrone-e.estradiol-iron [Uyen Fe 06/26 (28)] 1 mg-20 mcg (21)/75 mg (7) tablet 1 tab PO DAILY RF: 0 hydrocodone-acetaminophen 10-325 mg tablet 1 tab PO Q6H PRN (Reason: Pain) RF: 0 carisoprodol [Soma] 350 mg tablet 350 mg PO TID PRN (Reason: Spasms) RF: 0 zonisamide [Zonegran] 100 mg capsule 100 mg PO DAILY RF: 0 levothyroxine 200 mcg capsule 200 mcg PO DAILY RF: 0 ibuprofen 800 mg tablet 800 mg PO Q8H PRN (Reason: pain) Qty: 30 RF: 0 ondansetron HCl 4 mg tablet 4 mg PO Q6H PRN (Reason: nausea and vomiting) Qty: 10 RF: 0 Aimovig Autoinjector 140 mg/mL Auto-Injector 140 mg SUBCUT Q30D RF: 0 cholecalciferol (vitamin D3) [Vitamin D3] 125 mcg (5,000 unit) Tablet 125 mcg PO DAILY RF: 0 Discharge Orders: Discharge Order (Routine); Ordered 05/28/21 Ordered By: Rosa Keita Patient Instructions: Opioid Safety Discharge Attestations Time Spent in Discharge Care*: less than 30 min Quality Metrics Clinical Quality Measures During this hospital stay, did patient experience: None Coding Level of Care Code Acute Chg FW DC note Exam Detailed Diagnoses Dysmenorrhea N94.6 Abnormal uterine bleeding (AUB) N93.9 Uterine leiomyoma D25.9
[2021-05-28] MEDS: phenazopyridine 100 mg Tablet 200 MG PO (09:48)
[2021-05-28] MEDS: docusate sodium 100 mg Capsule PO (09:48)
[2021-05-28] MEDS: levothyroxine 200 mcg Tablet PO (09:54)
[2021-05-28 11:06] VITALS: BP 111/71; PULSE 67; RESP 18; TEMP 36.7; O2SAT 95
== END 2021-05-28 11:06 | disposition home or self-care (01) ==
LOC: OBGYN 12:14
PROVIDERS: Anesthesiology; Admitting Provider Obstetrics & Gynecology; PCP Internal Medicine; Visit Provider Obstetrics & Gynecology
PROC: 0UT9FZZ Resection of Uterus, Via Natural or Artificial Opening With Percutaneous Endoscopic Assistance (ICD-10-PCS; CPT 58552; principal; 2021-05-27 10:25)
PROC: (CPT 58661; 2021-05-27 10:25)
DX: D25.9 Leiomyoma of uterus, unspecified (principal); N94.6 Dysmenorrhea, unspecified; N93.9 Abnormal uterine and vaginal bleeding, unspecified; E28.2 Polycystic ovarian syndrome
CPT/HCPCS: 58552; 36415; 51798; 80048; 84703; 85025; 85027; 86850; 86900; 87086; 88307; 96374; G0378; J0690; J1100; J1170; J1200; J1885; J1940; J2250; J2405; J2704; J3010; J3490; J7030

== ENCOUNTER → 2021-07-07 16:17 | Outpatient (BNVA) | payer OTHER, SELFPAY | PROVIDERS: PCP Internal Medicine; Visit Provider Obstetrics & Gynecology | DX: R30.0 Dysuria (principal) | CPT/HCPCS: 81000 ==

== ENCOUNTER 2022-02-25 16:08 | Outpatient (CLI) | payer OTHER, SELFPAY ==
--- NOTE | 2022-02-25 16:32 | XRR_ITS ---
PROCEDURE INFORMATION: Exam: XR Chest Exam date and time: 02/25/2022 4:34 PM Age: 41 years old Clinical indication: Cough; Prior surgery; Surgery type: Spinal stimulator TECHNIQUE: Imaging protocol: Radiologic exam of the chest. Views: 2 views. COMPARISON: CR XR chest 1V portable [id number] 02/04/2021 6:56 PM FINDINGS: Tubes, catheters and devices: Spinal stimulator leads project over the mid to lower thoracic spine. Lungs: Unremarkable. No consolidation. Pleural spaces: Unremarkable. No pleural effusion. No pneumothorax. Heart/Mediastinum: Stable cardiomediastinal silhouette. Bones/joints: Unremarkable. Organs: Cholecystectomy clips project over the right upper quadrant. XR/XR chest 2V* [id number] IMPRESSION: No evidence of active cardiopulmonary disease.
== END 2022-02-25 16:09 | disposition home or self-care (01) ==
PROVIDERS: PCP Internal Medicine; Visit Provider Nurse Practitioner Family
DX: R05.8 Other specified cough (principal); R06.09 Other forms of dyspnea
CPT/HCPCS: 71046

== ENCOUNTER 2022-04-05 14:24 | Emergency (ER) | payer OTHER, SELFPAY ==
[2022-04-05 15:16] VITALS: BP 130/82; PULSE 96; RESP 18; TEMP 36.6; O2SAT 96; BMI 34.7
[2022-04-05 15:52] LABS: Basophils # 0.1 10^3/uL (0.0-0.1); Basophils % 0.6 %; Eosinophils # 0.1 10^3/uL (0.0-0.8); Eosinophils % 1.2 %; Hematocrit 43.2 % (37.0-47.0); Hemoglobin 13.8 g/dL (11.5-15.3); Lymphocytes # 2.6 10^3/uL (0.8-4.8); Lymphocytes % 25.9 %; Mean Corpuscular HGB Conc 31.9 g/dL (30.0-36.0); Mean Corpuscular Volume 97.1 fl (81-99); Mean Platelet Volume 10.3 fL (7.4-10.4); Monocytes # 0.4 10^3/uL (0.2-0.9); Monocytes % 4.3 %; Neutrophils # 6.67 10^3/uL (1.8-7.7); Neutrophils % 67.5 %; Nucleated Red Blood Cells % 0 %; Platelet Count 222 10^3/cmm (130-400); Red Blood Count 4.45 10^6/uL (4.1-5.3); Red Cell Distribution Width 12.3 % (12.1-15.1); White Blood Count 9.9 10^3/uL (4.0-10.0)
[2022-04-05 16:15] LABS: Alanine Aminotransferase 19 U/L (0-33); Albumin Level 4.3 g/dL (3.5-5.2); Alkaline Phosphatase 87 U/L (35-105); Aspartate Amino Transferase 14 U/L (0-32); Blood Urea Nitrogen 10 mg/dL (6-20); Calcium 9.4 mg/dL (8.5-10.5); Carbon Dioxide 25 mmol/L (22-29); Chloride 104 mmol/L (98-107); Globulin 2.4 g/dL (1.3-4.6); Glomerular Filtration Rate 135.3 mL/min (90-130); Glucose 132 mg/dL (65-115); Lipase 50 U/L (13-60); Osmolality Calculated 293 mOsm/kg (285-295); Sodium 141 mmol/L (136-145); Total Bilirubin 0.2 mg/dL (0.15-1.2); Total Protein 6.7 g/dL (6.6-8.7)
--- NOTE | 2022-04-05 17:46 | USR_ITS ---
PROCEDURE INFORMATION: Exam: US Nonobstetric Pelvis; Complete Exam date and time: 04/05/2022 6:01 PM Age: 41 years old Clinical indication: Pelvic pain; Prior surgery; Surgery date: 6+ months; Surgery type: Hysterectomy; Additional info: Groin pain lt TECHNIQUE: Imaging protocol: Transabdominal pelvic nonobstetric ultrasound. Complete exam. Real time ultrasound with image documentation. COMPARISON: CT abdomen pelvis w con* [id number] 02/24/2021 2:33 PM FINDINGS: Uterus: Uterus is absent. Right ovary/adnexa: Ovary is normal. No mass. Normal blood flow. Left ovary/adnexa: Ovary is normal. No mass. Normal blood flow. Intraperitoneal space: No intraperitoneal fluid. Urinary bladder: Normal. US/US pelvic complete* [id number] IMPRESSION: 1. Uterus is absent. 2. Ovaries appear within normal limits.
[2022-04-05 18:09] LABS: Add Urine Microscopic? YES; Bilirubin Urine Neg (Negative); Blood Urine Neg (Negative); Glucose Urine UA Norm (Normal); Ketones Urine 1+ (Negative); Leukocyte Esterase Urine Negative (Negative); Nitrate Urine Negative (Negative); Protein Urine Neg (Negative); Specific Gravity, Urine 1.015 (1.005-1.030); Urine Appearance SL Hazy (CLEAR); Urine Color Yellow (Yellow); Urobilinogen Urine Norm (Negative); pH Urine 7 (5-7)
--- NOTE | 2022-04-05 18:33 | CTR_ITS ---
PROCEDURE INFORMATION: Exam: CT Abdomen And Pelvis With Contrast Exam date and time: 04/05/2022 7:29 PM Age: 41 years old Clinical indication: Abdominal pain; Localized; Left lower quadrant (llq); Prior surgery; Surgery date: 6+ months; Surgery type: Cholecystectomy, lumbar fusion, spinal cord stimulator, thyroidectomy; Additional info: Llq pain TECHNIQUE: Imaging protocol: Computed tomography of the abdomen and pelvis with contrast. Radiation optimization: All CT scans at this facility use at least one of these dose optimization techniques: automated exposure control; mA and/or kV adjustment per patient size (includes targeted exams where dose is matched to clinical indication); or iterative reconstruction. Contrast material: OMNI 350; Contrast volume: 100 ml; Contrast route: INTRAVENOUS (IV); COMPARISON: CT abdomen pelvis w con* [id number] 02/24/2021 2:33 PM RADIATION DOSE METRICS: Total DLP (mGy-cm): 1064.12 FINDINGS: Tubes, catheters and devices: Spinal stimulator seen in the thoracic spine. Liver: Normal. No mass. Gallbladder and bile ducts: Cholecystectomy. Common bile duct somewhat prominent at 12 mm, perhaps related to prior cholecystectomy. Pancreas: Normal. No ductal dilation. Spleen: Spleen enlarged at 13 cm. Adrenal glands: Normal. No mass. Kidneys and ureters: Minimal perinephric edema bilaterally likely reflecting chronic renal insufficiency. Stomach and bowel: Constipation. Appendix: No evidence of appendicitis. Intraperitoneal space: Unremarkable. No free air. No significant fluid collection. Vasculature: Unremarkable. No abdominal aortic aneurysm. Lymph nodes: Unremarkable. No enlarged lymph nodes. Urinary bladder: Unremarkable as visualized. Reproductive: Left ovary 3.6 cm cyst, likely follicular in nature. Bones/joints: Lumbar spine surgical hardware. Soft tissues: Unremarkable. CT/CT abdomen pelvis w con* [id number] IMPRESSION: 1. Negative for acute inflammatory process abdomen or pelvis. 2. Spleen enlarged at 13 cm. 3. Cholecystectomy. 4. Common bile duct somewhat prominent at 12 mm, perhaps related to prior cholecystectomy. 5. Left ovary 3.6 cm cyst, likely follicular in nature. 6. Spinal stimulator seen in the thoracic spine. 7. Lumbar spine surgical hardware. 8. Constipation. 9. Minimal perinephric edema bilaterally likely reflecting chronic renal insufficiency.
--- NOTE | 2022-04-05 18:46 | ED_ITS ---
HPI - Abdominal Pain General: Chief Complaint: Abdominal Pain Stated Complaint: Pain in lower left abd Time Seen by Provider: 04/05/22 18:07 Source: patient History of Present Illness: 41-year-old female with left lower quadrant and left flank pain with back pain worsening over the course of the day. She is nauseated. No vomiting. No dysuria or hematuria. No diarrhea. She has had a history of a hysterectomy, but I still have my ovaries . MD elicited complaint: abdominal pain Pertinent past history: other Onset (ago): hour(s) Location: LLQ Severity: severe Radiation: LLQ Migration to: L flank Exacerbating factors: movement Relieving factors: nothing Associated Symptoms: Reports nausea; Denies change in bowel habits, change in stool character, diarrhea, dysuria, fever(s), fecal incontinence and vomiting Related Data: Date of Last Menstrual Period: 01/11/21 Review of Systems Const: Denies: fever(s) ENMT: Denies: throat pain Card: Denies: chest pain or palpitations Resp: Denies: dyspnea, productive cough or non-productive cough GI: Reports: nausea; Denies: vomiting, diarrhea, fecal incontinence, change in bowel habits or change in stool character : Denies: dysuria Musc: Reports: back pain Neuro: Denies: headache(s) PFSH ED PFSH: Medical History Angiokeratoma Chronic back pain Chronic nausea Gastritis determined by endoscopy Hypothyroidism Malaise and fatigue Migraines Seizures Uterine fibroid Vitamin D deficiency Surgical History History of cholecystectomy (02/04/18) History of esophagogastroduodenoscopy (EGD) 06/20/2019: Severe gastritis with bile reflux History of lumbar fusion (05/11/16) Dr. Cruz Left L5-S1 laminotomy/foraminotomy/discectomy for decompression . L5-S1 PLIFF. Please intervertebral prosthetic device. Removal of L5-S1 Zimmr Dyn esys stabilization construct. History of thyroidectomy S/P insertion of spinal cord stimulator (2008) 01/10/2015 Dr. Cruz. Replacement of subcutaneous programmable pulse generator with connection to intraspinal epidural electrode arrays. Family History Mother Bipolar disorder Depression Cancer Thyroid cancer Thyroid disease Father Diabetes Grandfather Stroke Paternal Grandmother Stroke Maternal Denies family history of CAD (coronary artery disease) Clotting disorder Hyperlipidemia Chronic kidney disease (CKD) Anesthesia complication Bleeding disorder Hypertension Female Reproductive History: Date of last menstrual period: 01/11/21 Physical Exam Const: GENERAL APPEARANCE: cooperative and ill appearing (mildly) NUTRITIONAL APPEARANCE: obese HENMT: COMMON NORMALS: normocephalic, atraumatic and Normal external nose present HEAD & SCALP: normocephalic and atraumatic FACE & SINUS: normal facial exam and face symmetric NOSE: Normal external nose present Eye: COMMON NORMALS: Equal, round and reactive pupils present and EOMs intact bilaterally PUPIL: Yes Equal, round and reactive pupils present Neck/C-Spine: GENERAL: Yes trachea midline Chest: CHEST: Yes Symmetrical chest wall rise Resp: COMMON NORMALS: normal respiratory effort, No retractions, No use of accessory muscles and clear to auscultation bilaterally AUSCULTATION: clear to auscultation bilaterally Cardio: COMMON NORMALS: regular rate and regular rhythm RATE: regular rate RHYTHM: regular rhythm GI: COMMON NORMALS: Normal to inspection, nondistended, normoactive bowel sounds present PALPATION: Yes Tenderness to palpation present (GI) (With rebound) Details: LLQ and Yes Guarding due to palpation present (GI) Extremity: COMMON NORMALS: no pedal edema Neuro: SILVANO COMA SCALE: document GCS findings Silvano coma scale eye opening: Spontaneous Silvano coma scale verbal response: Orientated Silvano coma scale motor response: Obey commands [place] coma scale total score: 15 SENSORY EXAM: Yes extremities (intact) Psych: COMMON NORMALS: speech normal SPEECH: Yes normal speech Skin: COMMON NORMALS: no rashes or lesions noted GENERAL SKIN EXAM: no rashes or lesions noted Course Vital Signs: Vital signs: Vital Signs Temperature 97.9 F 04/05/22 15:16 Pulse Rate 76 04/05/22 19:50 Respiratory Rate 18 04/05/22 19:50 Blood Pressure 162/80 04/05/22 19:50 Pulse Oximetry 99 04/05/22 19:50 MDM - Abdominal Pain Medical Decision Making 41-year-old female with left lower quadrant pain radiating into her back. Her CBC is normal. Her BMP is normal. She is very tender on exam, and actually had some rebound tenderness. Pelvic ultrasound reveals ovaries within normal limits. She has a small ovarian cyst that is likely follicular, 3.6 cm. She has significant constipation which is possibly the reason for her left lower quadrant pain. No other pathology that is significant on CT scan. She will be treated for constipation. Lab Data : 04/05/22 15:41 04/05/22 15:41 Labs/Radiology: Radiology Impressions Pelvis Ultrasound 04/05/22 17:46 IMPRESSION: 1. Uterus is absent. 2. Ovaries appear within normal limits. Abdomen/Pelvis CT 04/05/22 18:33 IMPRESSION: 1. Negative for acute inflammatory process abdomen or pelvis. 2. Spleen enlarged at 13 cm. 3. Cholecystectomy. 4. Common bile duct somewhat prominent at 12 mm, perhaps related to prior cholecystectomy. 5. Left ovary 3.6 cm cyst, likely follicular in nature. 6. Spinal stimulator seen in the thoracic spine. 7. Lumbar spine surgical hardware. 8. Constipation. 9. Minimal perinephric edema bilaterally likely reflecting chronic renal insufficiency. Laboratory Results WBC 9.9 10^3/uL (4.0-10.0) 04/05/22 15:41 RBC 4.45 10^6/uL (4.1-5.3) 04/05/22 15:41 Hgb 13.8 g/dL (11.5-15.3) 04/05/22 15:41 Hct 43.2 % (37.0-47.0) 04/05/22 15:41 MCV 97.1 fl (81-99) 04/05/22 15:41 MCH 31.0 pg (28.0-34.0) 04/05/22 15:41 MCHC 31.9 g/dL (30.0-36.0) 04/05/22 15:41 RDW 12.3 % (12.1-15.1) 04/05/22 15:41 Plt Count 222 10^3/cmm (130-400) 04/05/22 15:41 MPV 10.3 fL (7.4-10.4) 04/05/22 15:41 Neut % (Auto) 67.5 % 04/05/22 15:41 Lymph % (Auto) 25.9 % 04/05/22 15:41 [place] % (Auto) 4.3 % 04/05/22 15:41 Eos % (Auto) 1.2 % 04/05/22 15:41 Baso % (Auto) 0.6 % 04/05/22 15:41 Neut # (Auto) 6.67 10^3/uL (1.8-7.7) 04/05/22 15:41 Lymph # (Auto) 2.6 10^3/uL (0.8-4.8) 04/05/22 15:41 [place] # (Auto) 0.4 10^3/uL (0.2-0.9) 04/05/22 15:41 Eos # (Auto) 0.1 10^3/uL (0.0-0.8) 04/05/22 15:41 Baso # (Auto) 0.1 10^3/uL (0.0-0.1) 04/05/22 15:41 Nucleated RBC % (auto) 0 % 04/05/22 15:41 Nucleated RBCs # 0.0 /100WBC 04/05/22 15:41 Sodium 141 mmol/L (136-145) 04/05/22 15:41 Potassium 4.0 mmol/L (3.5-5.1) 04/05/22 15:41 Chloride 104 mmol/L (98-107) 04/05/22 15:41 Carbon Dioxide 25 mmol/L (22-29) 04/05/22 15:41 Anion Gap 16.0 (5-19) 04/05/22 15:41 BUN 10 mg/dL (6-20) 04/05/22 15:41 Creatinine 0.5 mg/dL (0.5-0.9) 04/05/22 15:41 GFR Calculation 135.3 mL/min (90-130) H 04/05/22 15:41 Glucose 132 mg/dL (65-115) H 04/05/22 15:41 Calculated Osmolality 293 mOsm/kg (285-295) 04/05/22 15:41 Calcium 9.4 mg/dL (8.5-10.5) 04/05/22 15:41 Total Bilirubin 0.2 mg/dL (0.15-1.2) 04/05/22 15:41 AST 14 U/L (0-32) 04/05/22 15:41 ALT 19 U/L (0-33) 04/05/22 15:41 Alkaline Phosphatase 87 U/L (35-105) 04/05/22 15:41 Total Protein 6.7 g/dL (6.6-8.7) 04/05/22 15:41 Albumin 4.3 g/dL (3.5-5.2) 04/05/22 15:41 Globulin 2.4 g/dL (1.3-4.6) 04/05/22 15:41 Lipase 50 U/L (13-60) 04/05/22 15:41 Urine Color Yellow (Yellow) 04/05/22 15:41 Urine Appearance Sl hazy (CLEAR) A 04/05/22 15:41 Urine pH 7 (5-7) 04/05/22 15:41 Ur Specific [place] 1.015 (1.005-1.030) 04/05/22 15:41 Urine Protein Neg (Negative) 04/05/22 15:41 Urine Glucose (UA) Norm (Normal) 04/05/22 15:41 Urine Ketones 1+ (Negative) H 04/05/22 15:41 Urine Blood Neg (Negative) 04/05/22 15:41 Urine Nitrate Negative (Negative) 04/05/22 15:41 Urine Bilirubin Neg (Negative) 04/05/22 15:41 Urine Urobilinogen Norm mg/dL (Negative) 04/05/22 15:41 Ur Leukocyte Esterase Negative (Negative) 04/05/22 15:41 Urine RBC 0-4 /hpf (0-2) H 04/05/22 15:41 Urine WBC None /hpf (0-5) 04/05/22 15:41 Ur Squamous Epith Cells 0-4 /hpf (0-5) H 04/05/22 15:41 Amorphous Sediment Not Reportable 04/05/22 15:41 Urine Bacteria None /hpf (NONE) 04/05/22 15:41 Discharge Plan Discharge Patient Disposition: Home Clinical Impression: Constipation Condition: Stable Prescriptions: No Action morphine 30 mg tablet 30 mg PO Q8H PRN (Reason: Pain) divalproex [Depakote] 500 mg tablet,delayed release (DR/EC) 1,250 mg PO BEDTIME hydrocodone-acetaminophen 10-325 mg tablet 1 tab PO Q6H PRN (Reason: Pain) carisoprodol [Soma] 350 mg tablet 350 mg PO TID PRN (Reason: Spasms) zonisamide [Zonegran] 100 mg capsule 200 mg PO BEDTIME levothyroxine 200 mcg capsule 200 mcg PO DAILY ibuprofen 800 mg tablet 800 mg PO Q8H PRN (Reason: pain) Qty: 30 0RF ondansetron HCl 4 mg tablet 4 mg PO Q6H PRN (Reason: nausea and vomiting) Qty: 10 0RF Aimovig Autoinjector 140 mg/mL Auto-Injector 140 mg SUBCUT Q30D Rx Instructions: DOSE CHANGE, TAKE ON THE 12TH OR 13TH Discharge Orders: Discharge ED (Routine); Ordered 04/05/22 Ordered By: Brijesh Lowery Referrals: Nathalie Smalls MD [Primary Care Provider] - 1-3 days Patient Instructions: Constipation (ED), Opioid Safety, Pain Management Activity Restrictions/Additional Instructions: Mix the medications you were dispensed together at home. Take them at home and stay close to the bathroom. Return for fever greater than 100, worsening pain despite treatment, vomiting liquids or medications, other concerning symptoms. Follow-up with your doctor at the beginning of the week. Coding Level of Care Code ED Machine Guide Base Winder 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
[2022-04-05] MEDS: iohexol 350 mg/mL 100 mL Btl IV (19:03)
[2022-04-05 19:08] VITALS: BP 123/76; PULSE 80; RESP 18; O2SAT 96
[2022-04-05 19:13] LABS: RBC Urine 0-4 /hpf (0-2); Squamous Epithelial Cell Urine 0-4 /hpf (0-5)
[2022-04-05 19:14] LABS: Add Urine Culture? No
[2022-04-05 19:18] VITALS: RESP 18
[2022-04-05] MEDS: ondansetron 2 mg/ML SDV 2 mL 4 MG IVP (19:18)
[2022-04-05] MEDS: sodium chloride 0.9% 1,000 ML 999 ML IV (19:18)
[2022-04-05] MEDS: HYDROmorphone 1 mg/mL INJ 1 mL IVP (19:18)
[2022-04-05 19:50] VITALS: BP 162/80; PULSE 76; RESP 18; O2SAT 99
== END 2022-04-05 20:39 | disposition home or self-care (01) ==
PROVIDERS: Emergency Medicine; Student in an Organized Health Care Education/Training Program; Emergency Provider Emergency Medicine; PCP Internal Medicine
DX: R10.32 Left lower quadrant pain (principal); K59.00 Constipation, unspecified; N83.202 Unspecified ovarian cyst, left side; R16.1 Splenomegaly, not elsewhere classified
CPT/HCPCS: 74177; 76856; 80053; 81001; 83690; 85025; 96361; 96374; 96375; 99285; J1170; J2405; J7030; Q9967

== ENCOUNTER 2022-09-07 16:40 | Outpatient (CLI) | payer OTHER, SELFPAY ==
--- NOTE | 2022-09-07 | CT_ITS ---
WS: [id number] CT LUMBAR SPINE, noncontrast. HISTORY: POST LAMINECTOMY SYNDROME TECHNIQUE: Contiguous 2.0 mm axial imaging are performed. Sagittal and coronal reformats are submitte d and reviewed. [facility] use at least one of these dose optimization techni ques: automated exposure control; mA and/or kV adjustment per patient size (includes targeted exams w here dose is matched to clinical indication); or iterative reconstruction. IV contrast: None DLP: 872.88 mGy.cm COMPARISON: 11/06/2020 Posterior lumbar fusion at L5-S1. Interbody spacer at L5-S1 with no subsidence. No lucency around the pedicle screws. Large posterior laminectomy defect at L5. Partial fusion of the bone graft. L1-2: Normal. L2-3: Mild asymmetric disc bulging, slightly greater to the LEFT. L3-4: Mild asymmetric disc bulging slightly greater to the RIGHT. No high-grade stenosis. L4-5: Moderate annular disc bulging with mild encroachment upon the ventral thecal sac. Mild encroach ment upon the central canal. No significant foraminal stenosis. L5-S1: Mild narrowing of the proximal LEFT foramen due to facet joint arthritis and vertebral body os teophyte. No high-grade stenosis or focal disc protrusion. Visualized retroperitoneum is normal. CT/CT lumbar spine wo con* [id number] IMPRESSION: 1. Status post posterior lumbar fusion at L5-S1 with interbody spacer. Stable since 11/06/2020. 2. Large posterior laminectomy defect at L5. 3. No high-grade central or foraminal stenosis. 4. Mild central stenosis at L4-5.
== END 2022-09-07 16:41 | disposition home or self-care (01) ==
PROVIDERS: PCP Internal Medicine; Visit Provider Anesthesiology Pain Medicine
DX: M96.1 Postlaminectomy syndrome, not elsewhere classified (principal); M48.061 Spinal stenosis, lumbar region without neurogenic claudication; M43.27 Fusion of spine, lumbosacral region
CPT/HCPCS: 72131

== ENCOUNTER → 2022-09-29 16:03 | Outpatient (BNVA) | payer OTHER, SELFPAY | PROVIDERS: PCP Internal Medicine; Referring Provider Anesthesiology Pain Medicine; Visit Provider Orthopaedic Surgery | DX: M48.062 Spinal stenosis, lumbar region with neurogenic claudication (principal); Z98.1 Arthrodesis status; Z98.890 Other specified postprocedural states | CPT/HCPCS: 72110 ==

== ENCOUNTER 2022-10-28 09:33 | Outpatient (CLI) | payer OTHER, SELFPAY ==
--- NOTE | 2022-10-28 10:00 | IR_ITS ---
WS: [id number] LUMBAR MYELOGRAM HISTORY: prior lumbar fusion, low back pain w radiculopathy COMPARISON: 11/06/2020 FLUOROSCOPY TIME: 3min [id number] # of spot films: 1 Procedure, risks and complications were explained to the patient. Risks including bleeding, infection , headaches, allergic reaction and seizures. Consent has been obtained. With the patient in prone position the skin over the lumbar region is cleansed with ChloraPrep and an esthetized with lidocaine. 22-gauge spinal needle is inserted into the thecal sac at the appropriate level determined by fluoroscopy. Omnipaque 240; 12 ml is injected slowly under fluoroscopy with no co mplications. Needle bevel is perpendicular to the longitudinal fibers of the dura. Stylet is reinsert ed prior to removal of the needle. Patient tolerated the procedure well. Patient will proceed to CT f or further evaluation. Posterior lumbar fusion at L5-S1. Interbody disc spacer at L5-S1. Good opacification of the thecal sa c. IR/IR myelogram sp lumbar [id number] IMPRESSION: Uncomplicated lumbar myelogram. Lumbar CT myelogram to follow.
--- NOTE | 2022-10-28 10:00 | CT_ITS ---
WS: [id number] CT MYELOGRAM LUMBAR SPINE HISTORY: prior lumbar fusion, low back pain w radiculopathy TECHNIQUE: Contiguous 2.0 mm axial imaging performed from T12 through the mid sacral level. Bone and soft tissue windows reviewed. Sagittal and coronal reformats are submitted and reviewed. DLP: 1479.[address] scans at [facility] use at least one of these dose optimization techniques: automated e xposure control; mA and/or kV adjustment per patient size (includes targeted exams where dose is matc hed to clinical indication); or iterative reconstruction. COMPARISON: 09/07/2022 Status post posterior lumbar fusion at L5-S1. No significant lucency around the pedicle screws. Poste rior lumbar alignment appears normal. No fractures. L1-L2: Normal. No stenosis. L2-L3: Mild annular disc bulging. Very minimal facet arthritis. Normal nerve root distribution. No st enosis. L3-L4: Moderate annular disc bulging. There is a small RIGHT foraminal disc protrusion without signif icant stenosis. Does not appear to be contacting the nerve root. Minimal central canal stenosis. L4-L5: Mild annular disc bulging. Posterior laminectomy defect. Central canal is small nerve roots ar e slightly clumped. There is some very mild central stenosis. No significant disc protrusions. L5-S1: Mild osteophytic ridging. Large central laminectomy defect. No disc protrusions. Small foramin al osteophytes. Very slight clumping of the nerve roots in the thecal sac. Paravertebral soft tissues are normal. Prior cholecystectomy. Age-indeterminate, nondisplaced fracture involving the inferior articular facet on the LEFT of L3. No jigar on the prior study of 09/07/2022 but new since 11/06/2020. CT/CT lumbar spine w con [id number] IMPRESSION: 1. Status post posterior lumbar fusion at L5-S1 with interbody spacer. 2. Small RIGHT foraminal disc protrusion at L3-4 does not appear to be contact ing the nerve roots. 3. Mild central stenosis at L3-4. 4. Mild central stenosis at L4-5. 5. Mild arachnoiditis.
== END 2022-10-28 09:34 | disposition home or self-care (01) ==
PROVIDERS: PCP Internal Medicine; Visit Provider Orthopaedic Surgery
DX: M48.062 Spinal stenosis, lumbar region with neurogenic claudication (principal); M54.16 Radiculopathy, lumbar region; Z98.890 Other specified postprocedural states
CPT/HCPCS: 62304; 72132; Q9966

== ENCOUNTER → 2022-11-10 11:47 | Outpatient (BNVA) | payer OTHER, SELFPAY | PROVIDERS: PCP Internal Medicine; Visit Provider Orthopaedic Surgery | DX: Z01.818 Encounter for other preprocedural examination (principal); Z09 Encounter for follow-up examination after completed treatment for conditions other than malignant neoplasm; M48.062 Spinal stenosis, lumbar region with neurogenic claudication | CPT/HCPCS: 36415; 80053; 85025 ==

== ENCOUNTER 2022-11-30 15:50 | Inpatient (IN) | payer OTHER, SELFPAY ==
[2022-11-27 10:10] VITALS: BMI 35.5
[2022-11-30] VITALS (88 sets, daily range): BP systolic 65–141; BP diastolic 42–93; PULSE 65–115; RESP 11–27; TEMP 36.1–37.4; O2SAT 30–100
--- NOTE | 2022-11-30 | XR_ITS ---
WS: [id number] Exam: XR lumbar spine 2-3V* [id number] Date/Time of Exam: 11/30/2022 12:00 AM Reason For Exam: L3 to pelvis fusion. OR Pic. Intraoperative AP and lateral images of the lower lumbar and upper sacral spine are submitted for meliton luation. 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 Screws bridge the bilateral SI joints.
[2022-11-30] MEDS: ondansetron 2 mg/ML SDV 2 mL 4 MG IVP ×4 (08:39→19:27)
[2022-11-30] MEDS: fentaNYL 50 mcg/mL INJ 2mL IVP (08:39)
[2022-11-30] MEDS: sodium chloride 0.9% 1,000 ML 30 ML IV (08:39)
[2022-11-30] MEDS: scopolamine 1.5 Patch 1 PATCH TRANSDERMA (08:40)
--- NOTE | 2022-11-30 08:42 | P.ANESASSM_ITS ---
Pre-Anesthetic Assessment Height/Weight: Height 1.68 m Weight 99.79 kg Temp Pulse Resp BP Pulse Ox O2 Del Method 97.0 F L 78 16 141/93 98 Room Air 11/30/22 07:56 11/30/22 07:56 11/30/22 07:56 11/30/22 07:56 11/30/22 07:56 11/30/22 07:56 Preop Diagnosis: Lumbar stenosis, Lumbar fusion, Chronic Pain Syndrome Operation Date: 11/30/22 09:15 Proposed Procedures p L3 to the pelvis revision fusion with decompression of L3-4 and L4- 5:[id number],[id number],73054,20005,60965,36633,09832,40101,M48.062(Not Applicable) - Milton Dolan, Familial anesthetic complications: None Was Beta Ayesha taken within 24 hours: N/A Was Clonidine taken within 24 hours: N/A Last intake: Intake Last Liquid Date 11/29/22 Last Liquid Time 23:55 Last Solid Date 11/29/22 Last Solid Time 22:00 Social No alcohol and No tobacco Exam alert, oriented x 3, clear to auscultation bilaterally and regular rate & rhythm Airway Mallampati: Class I Dentition: other (a few missing) Pulmonary None reported GI Gastroesophageal Reflux Disease Metabolic Thyroid Disease Neuropsych Seizure Anesthetic Plan ASA status: 3 Anesthesia: General Risk of > 500 ml blood loss (7ml/kg in children): No Medications/Allergies Home Medications Medication Instructions Recorded Confirmed Last Taken Type carisoprodol 350 mg tablet (Soma) 350 mg PO TID PRN Spasms 06/14/19 11/30/22 11/29/22 History levothyroxine 200 mcg capsule 200 mcg PO DAILY 06/14/19 11/27/22 11/30/22 History zonisamide 100 mg capsule 200 mg PO BEDTIME 06/14/19 11/27/22 11/29/22 History (Zonegran) morphine 30 mg immediate release 30 mg PO TID PRN Pain 06/19/19 11/27/22 11/29/22 History tablet ondansetron HCl 4 mg tablet 4 mg PO Q6H PRN nausea and 03/19/20 11/30/22 11/23/22 Rx vomiting #10 tabs erenumab-aooe 140 mg/mL 140 mg SUBCUT Q30D MIGRAINE 02/04/21 11/30/22 11/29/22 History subcutaneous auto-injector HEADACHES (Aimovig Autoinjector) divalproex 500 mg tablet,delayed 1,250 mg PO BEDTIME 03/31/21 11/27/22 11/29/22 History release (Depakote) hydrocodone 10 mg-acetaminophen 1 tab PO Q6H PRN Pain 03/31/21 11/27/22 11/29/22 History 325 mg tablet diphenhydramine HCl 25 mg capsule 25 mg PO TID PRN Itching 11/25/22 11/30/22 11/28/22 History (Benadryl) docusate sodium 250 mg capsule 250 mg PO DAILY PRN Constipation 11/25/22 11/30/22 11/25/22 History Bone Growth Stimulator E0748 #1 ea 11/27/22 11/27/22 Unknown Rx ibuprofen 200 mg tablet 200 mg PO BID PRN Pain 11/27/22 11/30/22 11/18/22 History intraoperative neurophysiological #1 ea 11/27/22 11/27/22 Unknown Rx testing Allergies Allergy/AdvReac Type Severity Reaction Status Date / Time ofloxacin [From Floxin] Allergy ADR-Muscle Verified 11/25/22 10:03 Pain Sulfa (Sulfonamide Allergy ALGY-Hives Verified 11/25/22 10:03 Antibiotics) DERMABOND Allergy ALGY-Hives Uncoded 11/30/22 07:31 Current Medications Generic Name Dose Route Start Last Admin Trade Name Freq PRN Reason Stop Dose Admin Fentanyl 50 mcg 11/30/22 07:48 11/30/22 08:39 Fentanyl 50 Mcg/Ml Inj 2ml IVP 50 mcg ONCE PRN Administration Preop Pain Sodium Chloride 1,000 mls @ 30 mls/hr 11/30/22 08:00 11/30/22 08:39 Sodium Chloride 0.9% IV 12/01/22 07:59 30 mls/hr .Q24H DEBORAH Administration Ondansetron HCl 4 mg 11/30/22 07:48 11/30/22 08:39 Ondansetron 2 Mg/Ml Sdv 2 Ml IVP 4 mg ONCE PRN Administration NAUSEA AND VOMITING PFSH Anesthesia Medical History Angiokeratoma Chronic back pain Chronic nausea Gastritis determined by endoscopy Hypothyroidism Malaise and fatigue Migraines Pre-op evaluation Seizures last seizure 2009 Uterine fibroid Vitamin D deficiency Surgical History History of cholecystectomy (02/04/18) History of esophagogastroduodenoscopy (EGD) 06/20/2019: Severe gastritis with bile reflux History of lumbar fusion (05/11/16) Dr. Cruz Left L5-S1 laminotomy/foraminotomy/discectomy for decompression . L5-S1 PLIFF. Please intervertebral prosthetic device. Removal of L5-S1 Zim Dynesys stabilization construct. History of thyroidectomy S/P insertion of spinal cord stimulator (2008) 01/10/2015 Dr. Cruz. Replacement of subcutaneous programmable pulse generator with connection to intraspinal epidural electrode arrays. Family History Mother Bipolar disorder Depression Cancer Thyroid cancer Thyroid disease Father Diabetes Grandfather Stroke Paternal Grandmother Stroke Maternal Denies family history of CAD (coronary artery disease) Clotting disorder Hyperlipidemia Chronic kidney disease (CKD) Anesthesia complication Bleeding disorder Hypertension Social History Substance/Drug Use: never Data Anesthesia Cardiac Studies: No Data to Display
--- NOTE | 2022-11-30 09:17 | P.HPUD_ITS ---
Surgery/Procedure H&P Update DATE OF PROCEDURE: November 30, 2022 DATE H&P PERFORMED: 11/10/22 H&P UPDATE INFORMATION: I have reviewed H&P completed within last 30 days, I have examined patient prior to procedure and No changes to prior documentation PREOP DIAGNOSIS: Lumbar stenosis, Lumbar fusion, Chronic Pain Syndrome PLANNED PROCEDURE: Operation Date: 11/30/22 09:15 Proposed Procedures p L3 to the pelvis revision fusion with decompression of L3-4 and L4- 5:[id number],40430,28045,10641,33899,93765,M48.062(Not Applicable) - Milton Dolan, DO
[2022-11-30] MEDS: ceFAZolin 2,000 MG in sodium chloride 0.9% (plus) 50 ML 100 MG IV ×2 (09:41→16:41)
[2022-11-30] MEDS: lidocaine-epi 2% 20 mL INJ INJECTION (10:16)
[2022-11-30] MEDS: heparin, porcine 1,000 unit/mL INJ 10 mL 10000 UNIT IRRIGATION (10:30)
[2022-11-30] MEDS: vancomycin 1,000 MG SDV 1000 MG XX (11:41)
--- NOTE | 2022-11-30 13:42 | P.OP_ITS ---
Operative Report Date of procedure: November 30, 2022 Pre-op diagnosis: Preop Diagnosis Lumbar stenosis, Lumbar fusion, Chronic Pain Syndrome Post-op diagnosis: same Procedure done: 1. L3-pelvis posterior spine fusion 2. L3-S1 instrumentation 3. Lumbopelvic instrumentation 4. Right open SI joint fusion 5. Left open SI joint fusion 6. L3/4 laminectomy with with facetectomies 7. L4/5 laminectomy with partial facetectomies 8. Computer navigation/ stereotactic for spine 9. bone marrow aspirate right iliac crest 10. removal of neuro stimulator 11. removal of battery for neural stimulator 12. removal of deep hardware 13. use of autograft from same inision 14. use of allograft Surgeon: Milton Dolan Metal Technician: Kit Bell Metal Technician: The surgical services coordinator, Kit Bell, KEYLA was needed for his expertise under the microscope. He was important and necessary throughout the procedure to complete in a safe and timely manner. He assisted with patient positioning prepping and draping tissue retraction suctioning of the operative field protection of the dural sac and tissue closure Estimated blood loss (mL): 500 Procedure: 1. L3-pelvis posterior spine fusion 2. L3-S1 instrumentation 3. Lumbopelvic instrumentation 4. Right open SI joint fusion 5. Left open SI joint fusion 6. L3/4 laminectomy with with facetectomies 7. L4/5 laminectomy with partial facetectomies 8. Computer navigation/ stereotactic for spine 9. bone marrow aspirate right iliac crest 10. removal of neuro stimulator 11. removal of battery for neural stimulator 12. removal of deep hardware 13. use of autograft from same inision 14. use of allograft Patient brought to the operative suite after undergoing anesthesia patient was placed in the prone position. All areas impingement well-padded. Patient is prepped draped normal sterile fashion. Attention was brought first to removing the battery for the neurostimulator. This on the right flank. Skin incision is made over the. The right flank. Once the incision was made the battery was identified and removed. Wires were cut. Next tension was brought to removing the neurostimulator. This was done by incision over the thoracic spine. The wires were identified and traced down to the lamina. The wires were adhered to scar tissue above the dura. These were taken down with a curved curettes microscope was brought in. High-speed bur was used to further up the laminectomy to get to the end of the paddle in order to facilitate removing the paddle. Once the paddle was removed the wound was irrigated and closed with Vicryl and Monocryl suture. As was the battery incision. Next tension was brought to the lumbar fusion skin incision is made from L3 down to the pelvis. The subperiosteal dissection was made out to the transverse processes of L3 bilaterally L4 bilaterally. Next the L5 and S1 screws were identified. The sacral ala was dissected out as well as per the sacrum in order to later place iliac screws. The screw caps for L5 and S1 were removed. This was done bilaterally. Rods were removed. The screws were then removed. And the L5 screw was replaced with a 6.5 45 mm screws. Once the screws were placed next tension was brought to obtaining bone marrow aspirate from the right iliac crest. Bone marrow aspirate was taken right iliac crest using the bone marrow aspiration needle. The bone marrow aspirate was removed and the bone marrow aspirate was placed with OsteoMed bone graft and the autograft later taken in the case. Next attention was brought to placing the fiducial for the computer navigation. 2 pins were placed in the right iliac crest. Fiducial was attached to the 2 pins. Once the fiducial was attached the C-arm was brought in and spun around the patient and the information from the C-arm was then loaded in the computer for placement of the computer navigated screws. The 2 pins that were used for fiducial were then later removed at the end of the case. Next attention was brought to bring the gearshift probe in to place computer navigated screws. This was done at L4 bilaterally. This was done using the gearshift probe followed by the pedicle feeler followed by the computer navigated screws. The screws were placed using computer navigation at L4 bilaterally L3 bilaterally Next attention was brought to placing the iliac screws. The gearshift probe linked to computer navigation was passed through the sacral ala through the SI joint and into the iliac crest. This was done bilaterally. Then the pedicle. Used to ensure that the screws and improved position. Then the 70 mm 8.5 screw was passed bilaterally. Next attention was brought to placing the gearshift probe across the SI joint. Followed by filling the pedicle feeler followed by placing a wire followed by the drill. And then the sacroiliac fusion screw was placed across the SI joint bone graft was packed into the SI joint. Next tension was brought to performing a laminectomy at L3. Also laminectomies completed is done using high-speed bur curved curettes and Kerrison rongeurs. The 10 is brought to the medial aspect of facet joints. This was done by using high-speed bur curved curettes and Kerrison rongeurs. The L3 nerves were traced out the L3-4 foramen. The L4 nerve was traced from the L4 pedicle bilaterally. Next attention was brought to perform laminectomy at L4. Once laminectomy was complete then the medial aspect of facet joints taken down using the high-speed bur curved curette and Kerrison rongeurs. The L4 nerve was traced out the L4-5 foramen. And the L5 nerve was traced around the L5 pedicles bilaterally nerves were felt to be adequate decompressed. She was brought to placing the rods from L3-S1 and connecting to the iliac screws completing the lumbopelvic fixation. Screws were torqued in position this was done bilaterally. Caps were torqued. Once the rods were felt to be in adequate position and then attention was brought to decorticating the transverse processes. This was done by using high-speed bur on the transverse processes and then the ostial amp and the autograft were packed in the lateral gutters. This was done bilaterally. Wound was closed in layered fashion with 0 Vicryl 2-0 Vicryl and Monocryl suture. Sterile dressings were applied patient is transferred to the PACU in stable addition.
[2022-11-30] MEDS: HYDROmorphone 1 mg/mL INJ 1 mL 0.5 MG IVP ×2 (14:20→14:30)
[2022-11-30 15:24] LABS: Hematocrit 32.6 % (37.0-47.0); Hemoglobin 10.2 g/dL (11.5-15.3)
[2022-11-30] MEDS: morphine 4 mg/mL SDV 1 mL 2 MG IVP ×8 (16:12→23:24)
[2022-11-30] MEDS: lactated ringers 1,000 ML 90 ML IV (16:17)
[2022-11-30] MEDS: ketorolac 30 mg/mL INJ IVP ×2 (16:34→22:44)
[2022-11-30] MEDS: HYDROcodone-acetaminophen 10-325 mg Tablet PO ×2 (16:39→20:45)
[2022-11-30] MEDS: docusate sodium 100 mg Capsule PO (17:08)
--- NOTE | 2022-11-30 19:19 | PC.NURSE ---
REceived patient from OR staff at 1550. Patient is alert and oriented to person, place, time, and situation. COmplains of severe pain. Vitals: BP- 101/52, HR-102, RR- 16, SPO2 100%, Temp: 99.3. Dressing to back is clean, dry, and intact.
--- NOTE | 2022-11-30 19:20 | PC.NURSE ---
SHIft SUmmary: Uneventful shift. Patient's pain has slowly started to come under control with a combination of medications available and repositioning. Total drainage form hemovac since 1600 in ICU has been 250mL of sanguineous drainage, However she came to ICU with hemovac partially full, unsure what amount was new drainage. Hemovac emptied at 1800 and third shift lieutenant nurse notified so bleeding rate can be more accurately assessed.
[2022-11-30] MEDS: acetaminophen 325 mg Tablet 650 MG PO (19:25)
--- NOTE | 2022-11-30 20:34 | PC.NURSE ---
Physician Update: Spoke to Dr. Dolan on phone @approximately 2024 about pts uncontrolled pain and low BP. New order to add home medication Morphine 30mg immediate release PO TID PRN and CBC/BMP now and @0400 for morning labs.
[2022-11-30] MEDS: morphine IR 15 mg Tablet 30 MG PO (20:45)
[2022-11-30] MEDS: zonisamide 100 MG Capsule 200 MG PO (20:49)
[2022-11-30] MEDS: divalproex DR 250 mg Tablet PO (20:49)
[2022-11-30] MEDS: divalproex DR 500 mg Tablet 1000 MG PO (20:49)
[2022-11-30] MEDS: diphenhydrAMINE 25 mg Capsule PO (20:52)
[2022-11-30 20:59] LABS: Basophils % 0.1 %; Hemoglobin 9.1 g/dL (11.5-15.3); Lymphocytes # 1.3 10^3/uL (0.8-4.8); Lymphocytes % 8.8 %; Mean Corpuscular HGB Conc 31.4 g/dL (30.0-36.0); Mean Corpuscular Hemoglobin 30.7 pg (28.0-34.0); Mean Platelet Volume 10.6 fL (7.4-10.4); Monocytes # 0.8 10^3/uL (0.2-0.9); Monocytes % 5.7 %; Neutrophils # 12.23 10^3/uL (1.8-7.7); Neutrophils % 84.2 %; Nucleated Red Blood Cells % 0 %; Platelet Count 161 10^3/cmm (130-400); Red Blood Count 2.96 10^6/uL (4.1-5.3); Red Cell Distribution Width 13.3 % (12.1-15.1); White Blood Count 14.5 10^3/uL (4.0-10.0)
[2022-11-30 21:17] LABS: Blood Urea Nitrogen 8 mg/dL (6-20); Calcium 7.7 mg/dL (8.5-10.5); Carbon Dioxide 18 mmol/L (22-29); Chloride 104 mmol/L (98-107); Glomerular Filtration Rate 134.7 mL/min (90-130); Glucose 191 mg/dL (65-115); Osmolality Calculated 285 mOsm/kg (285-295); Sodium 136 mmol/L (136-145)
[2022-11-30 21:18] LABS: Anion Gap 19.1 (5-19); Potassium 5.1 mmol/L (3.5-5.1)
[2022-12-01] VITALS (87 sets, daily range): BP systolic 75–132; BP diastolic 39–78; PULSE 65–108; RESP 9–30; TEMP 36.7; O2SAT 79–100
[2022-12-01] MEDS: HYDROcodone-acetaminophen 10-325 mg Tablet PO ×4 (01:08→16:08)
[2022-12-01] MEDS: ceFAZolin 2,000 MG in sodium chloride 0.9% (plus) 50 ML 100 MG IV ×2 (01:09→09:13)
[2022-12-01] MEDS: morphine IR 15 mg Tablet 30 MG PO ×3 (02:33→23:31)
[2022-12-01] MEDS: lactated ringers 1,000 ML 90 ML IV ×2 (02:35→19:00)
[2022-12-01] MEDS: morphine 4 mg/mL SDV 1 mL 2 MG IVP ×6 (03:20→23:00)
[2022-12-01 03:49] LABS: Basophils % 0.2 %; Eosinophils % 0.1 %; Hematocrit 28.1 % (37.0-47.0); Hemoglobin 8.9 g/dL (11.5-15.3); Lymphocytes # 2.2 10^3/uL (0.8-4.8); Mean Corpuscular HGB Conc 31.7 g/dL (30.0-36.0); Mean Corpuscular Hemoglobin 31.2 pg (28.0-34.0); Mean Corpuscular Volume 98.6 fl (81-99); Mean Platelet Volume 10.5 fL (7.4-10.4); Monocytes # 1.3 10^3/uL (0.2-0.9); Monocytes % 10.5 %; Neutrophils # 8.44 10^3/uL (1.8-7.7); Neutrophils % 70.1 %; Nucleated Red Blood Cells % 0 %; Platelet Count 159 10^3/cmm (130-400); Red Blood Count 2.85 10^6/uL (4.1-5.3); Red Cell Distribution Width 13.2 % (12.1-15.1)
[2022-12-01 04:11] LABS: Anion Gap 16.2 (5-19); Blood Urea Nitrogen 7 mg/dL (6-20); Calcium 8.2 mg/dL (8.5-10.5); Carbon Dioxide 22 mmol/L (22-29); Chloride 107 mmol/L (98-107); Glomerular Filtration Rate 134.7 mL/min (90-130); Glucose 158 mg/dL (65-115); Osmolality Calculated 293 mOsm/kg (285-295); Potassium 4.2 mmol/L (3.5-5.1); Sodium 141 mmol/L (136-145)
[2022-12-01] MEDS: ketorolac 30 mg/mL INJ IVP ×2 (04:48→12:06)
[2022-12-01] MEDS: levothyroxine 200 mcg Tablet PO (06:18)
--- NOTE | 2022-12-01 07:51 | PM.PN ---
Subjective Subjective: POD 1 Patient resting comfortably. Denies lightheadedness or dizziness. She has been mobilizing in the halls. Denies chest pain shortness of breath or headaches. Vitals/I&O/Wt Last Vital Signs Temp 99.0 F 11/30/22 22:00 Pulse 79 12/01/22 06:30 Resp 19 H 12/01/22 06:30 BP 97/65 12/01/22 06:30 Pulse Ox 99 12/01/22 06:30 O2 Del Method Room Air 12/01/22 06:30 O2 Flow Rate 2 11/30/22 18:45 11/30/22 12/01/22 12/01/22 22:59 06:59 14:59 Intake Total 770.828 / 2320.828 1053.835 / 3374.663 Output Total 650 / 1850 1675 / 3525 Balance 120.828 / 470.828 -621.165 / -150.337 Physical Exam Narrative: Patient presents alert and oriented x3 with a good general appearance normal mood and affect. Normal coordination normal stability. Mild tenderness around the incisional site with the incision appear to be clean and dry with Hemovac intact. No signs of erythema or drainage. No signs of infection. Patient denies any fevers or chills. 5/5 motor strength both lower extremities with negative straight leg raise bilaterally. Calves are supple no medial thigh tenderness. Pulses are 2+ at the dorsalis pedis and posterior tibial region. Good capillary refill throughout normal sensation light touch both lower extremities. Urinary Catheter Management: Begum: Cath Placed During This Visit: yes, but has since been removed by the nurse Reason for Continuing Indwelling Catheter: Decision to DC Catheter Urinary Catheter Date of Insertion: 11/30/22 Urinary Catheter Time of Insertion: 09:45 Date Urinary Catheter Removed: 12/01/22 Time Urinary Catheter Discontinued: 05:00 Data 12/01/22 03:11 12/01/22 03:11 A&P Assessment and plan (1) Status post lumbar spinal fusion: If the patient remained stable can transfer her back to [facility] floor. Continue walking program. Take the Hemovac drain to gravity. Continue to lie supine to help tamponade bleeding. Continue incentive spirometry for pulmonary toilet. Patient is high risk of bleeding we will encourage SCDs for DVT prophylaxis. (2) Acute blood loss as cause of postoperative anemia: Attestations Medical Necessity Statement*: Continue medical management Coding Level of Care Code Acute Code for Chg Fwd Diagnoses Status post lumbar spinal fusion Z98.1 Acute blood loss as cause of postoperative anemia D62
[2022-12-01] MEDS: docusate sodium 100 mg Capsule PO ×2 (08:19→17:50)
[2022-12-01] MEDS: ondansetron 2 mg/ML SDV 2 mL 4 MG IVP (18:14)
[2022-12-01] MEDS: divalproex DR 500 mg Tablet 1000 MG PO (20:17)
[2022-12-01] MEDS: divalproex DR 250 mg Tablet PO (20:17)
[2022-12-01] MEDS: zonisamide 100 MG Capsule 200 MG PO (20:18)
[2022-12-01] MEDS: diphenhydrAMINE 25 mg Capsule PO (20:20)
[2022-12-02] VITALS (22 sets, daily range): BP systolic 76–106; BP diastolic 47–67; PULSE 88–107; RESP 15–21; TEMP 36.7; O2SAT 93–97
[2022-12-02] MEDS: morphine 4 mg/mL SDV 1 mL 2 MG IVP ×3 (00:34→05:08)
[2022-12-02] MEDS: HYDROcodone-acetaminophen 10-325 mg Tablet PO (02:04)
[2022-12-02 03:20] LABS: Hematocrit 25.9 % (37.0-47.0); Hemoglobin 7.8 g/dL (11.5-15.3)
--- NOTE | 2022-12-02 06:47 | PM.PN ---
Subjective Subjective: POD 2 Patient resting comfortably. She is walked the dawn several times through the night. She denies lightheadedness or dizziness shortness of breath or chest pain. Vitals/I&O/Wt Last Vital Signs Temp 98.1 F 12/01/22 21:00 Pulse 95 12/02/22 06:00 Resp 17 12/02/22 06:00 BP 101/52 12/02/22 05:00 Pulse Ox 94 12/02/22 06:00 O2 Del Method Room Air 12/02/22 06:00 O2 Flow Rate 2 11/30/22 18:45 12/01/22 12/01/22 12/02/22 14:59 22:59 06:59 Intake Total 1650 / 1650 240 / 1890 Output Total 200 / 200 Balance 1650 / 1650 40 / 1690 Physical Exam Narrative: Patient presents alert and oriented x3 with a good general appearance normal mood and affect. Normal coordination normal stability. Mild tenderness around the incisional site with the incision appear to be lean and dry. No signs of erythema or drainage. No signs of infection. Patient denies any fevers or chills. 5/5 motor strength both lower extremities with negative straight leg raise bilaterally. Calves are supple no medial thigh tenderness. Pulses are 2+ at the dorsalis pedis and posterior tibial region. Good capillary refill throughout normal sensation light touch both lower extremities. Urinary Catheter Management: Begum: Cath Placed During This Visit: yes, but has since been removed by the nurse Reason for Continuing Indwelling Catheter: Decision to DC Catheter Urinary Catheter Date of Insertion: 11/30/22 Urinary Catheter Time of Insertion: 09:45 Date Urinary Catheter Removed: 12/01/22 Time Urinary Catheter Discontinued: 05:00 Data 12/02/22 03:05 12/01/22 03:11 A&P Assessment and plan (1) Acute blood loss as cause of postoperative anemia: Discussed with the patient and the nurse to discontinue the Hemovac drain. Change dressing and apply Silverlon dressing. Continue to mobilize. Incentive spirometry for pulmonary toilet. We will switch her to oxycodone fives 1-2 every 4-6 hours and discontinue the hydrocodone. She is also taking morphine 30 mg immediate release and can use the oxycodone for breakthrough. Discussed no bending lifting or twisting continue mobilizing with a walker. Discharge home later this morning if stable. We will have her follow-up in the office in [address] Dolan. she will call if she is having problems. (2) Status post lumbar spinal fusion: Attestations Medical Necessity Statement*: Discharge home later this morning if remains stable. Coding Level of Care Code Acute Code for Chg Fwd Diagnoses Acute blood loss as cause of postoperative anemia D62 Status post lumbar spinal fusion Z98.1
[2022-12-02] MEDS: levothyroxine 200 mcg Tablet PO (08:15)
[2022-12-02] MEDS: docusate sodium 100 mg Capsule PO (08:15)
--- NOTE | 2022-12-02 09:28 | PC.NURSE ---
Dr. Pantoja called about hemoglobin of 7.8 and patient has discharged orders, clarified continue with discharge due to non symptomatic anemia.
[2022-12-02] MEDS: morphine IR 15 mg Tablet 30 MG PO (09:29)
--- NOTE | 2022-12-04 06:57 | P.DS_ITS ---
Discharge Providers Date of Admission: 11/30/22 15:50 Date of Discharge: December 02, 2022 Attending Provider at Admission: Milton Dolan DO Attending Provider at Discharge: Milton Dolan DO Primary Care Provider: Nathalie Smalls MD Diagnoses at Discharge Discharge Diagnosis (1) Acute blood loss as cause of postoperative anemia: Status: Acute (2) Status post lumbar spinal fusion: Status: Acute Reason for Visit Reason for Visit: 74254 M48.062 Physical Exam Urinary Catheter Management: Begum: Cath Placed During This Visit: yes, but has since been removed by the nurse Reason for Continuing Indwelling Catheter: Decision to DC Catheter Urinary Catheter Date of Insertion: 11/30/22 Urinary Catheter Time of Insertion: 09:45 Date Urinary Catheter Removed: 12/01/22 Time Urinary Catheter Discontinued: 05:00 Discharge Data Studies Completed and Pending Completed Studies During Hospitalization Category Date Time Status XR lumbar spine 2-3V* [id number] Routine Exams 11/30/22 Completed Laboratory Results WBC 12.0 10^3/uL (4.0-10.0) H 12/01/22 03:11 RBC 2.85 10^6/uL (4.1-5.3) L 12/01/22 03:11 Hgb 7.8 g/dL (11.5-15.3) L 12/02/22 03:05 Hct 25.9 % (37.0-47.0) L 12/02/22 03:05 MCV 98.6 fl (81-99) 12/01/22 03:11 MCH 31.2 pg (28.0-34.0) 12/01/22 03:11 MCHC 31.7 g/dL (30.0-36.0) 12/01/22 03:11 RDW 13.2 % (12.1-15.1) 12/01/22 03:11 Plt Count 159 10^3/cmm (130-400) 12/01/22 03:11 MPV 10.5 fL (7.4-10.4) H 12/01/22 03:11 Neut % (Auto) 70.1 % 12/01/22 03:11 Lymph % (Auto) 18.0 % 12/01/22 03:11 [place] % (Auto) 10.5 % 12/01/22 03:11 Eos % (Auto) 0.1 % 12/01/22 03:11 Baso % (Auto) 0.2 % 12/01/22 03:11 Neut # (Auto) 8.44 10^3/uL (1.8-7.7) H 12/01/22 03:11 Lymph # (Auto) 2.2 10^3/uL (0.8-4.8) 12/01/22 03:11 [place] # (Auto) 1.3 10^3/uL (0.2-0.9) H 12/01/22 03:11 Eos # (Auto) 0.0 10^3/uL (0.0-0.8) 12/01/22 03:11 Baso # (Auto) 0.0 10^3/uL (0.0-0.1) 12/01/22 03:11 Nucleated RBC % (auto) 0 % 12/01/22 03:11 Nucleated RBCs # 0.0 /100WBC 12/01/22 03:11 Sodium 141 mmol/L (136-145) 12/01/22 03:11 Potassium 4.2 mmol/L (3.5-5.1) 12/01/22 03:11 Chloride 107 mmol/L (98-107) 12/01/22 03:11 Carbon Dioxide 22 mmol/L (22-29) 12/01/22 03:11 Anion Gap 16.2 (5-19) 12/01/22 03:11 BUN 7 mg/dL (6-20) 12/01/22 03:11 Creatinine 0.5 mg/dL (0.5-0.9) 12/01/22 03:11 GFR Calculation 134.7 mL/min (90-130) H 12/01/22 03:11 Glucose 158 mg/dL (65-115) H 12/01/22 03:11 Calculated Osmolality 293 mOsm/kg (285-295) 12/01/22 03:11 Calcium 8.2 mg/dL (8.5-10.5) L 12/01/22 03:11 Blood Type O Negative 11/30/22 08:20 Rho(D) Type Negative 11/30/22 08:20 Antibody Screen Negative 11/30/22 08:20 Vitals Last Vital Signs Temp 98.1 F 12/02/22 16:02 Pulse 107 H 12/02/22 16:02 Resp 17 12/02/22 16:02 BP 104/47 12/02/22 16:02 Pulse Ox 94 12/02/22 16:02 O2 Del Method Room Air 12/02/22 06:00 O2 Flow Rate 2 11/30/22 18:45 Discharge Plan Discharge Patient Disposition: Home Condition: Stable Prescriptions: New (DME) Bone Growth Stimulator [id number] See Rx Instructions .Route .MEDSUPPLY Qty: 1 0RF Rx Instructions: As directed oxycodone 10 mg tablet 10 mg PO Q4H PRN (Reason: pain) 7 Days Qty: 40 0RF Continued morphine 30 mg tablet 30 mg PO TID PRN (Reason: Pain) divalproex [Depakote] 500 mg tablet,delayed release (DR/EC) 1,250 mg PO BEDTIME hydrocodone-acetaminophen 10-325 mg tablet 1 tab PO Q6H PRN (Reason: Pain) carisoprodol [Soma] 350 mg tablet 350 mg PO TID PRN (Reason: Spasms) zonisamide [Zonegran] 100 mg capsule 200 mg PO BEDTIME levothyroxine 200 mcg capsule 200 mcg PO DAILY diphenhydramine HCl [Benadryl] 25 mg capsule 25 mg PO TID PRN (Reason: Itching) docusate sodium 250 mg capsule 250 mg PO DAILY PRN (Reason: Constipation) ondansetron HCl 4 mg tablet 4 mg PO Q6H PRN (Reason: nausea and vomiting) Qty: 10 0RF Aimovig Autoinjector 140 mg/mL Auto-Injector 140 mg SUBCUT Q30D Rx Instructions: DOSE CHANGE, TAKE ON THE OR ibuprofen 200 mg Tablet 200 mg PO BID PRN (Reason: Pain) Discharge Orders: Discharge Order (Routine); Ordered 12/02/22 Ordered By: Kit Bell Referrals: Milton Dolan DO [Physician] - 4-7 days (appointment date and time: December, at 3:00 pm) Discharge Diet: Advance as tolerated Discharge Activity: Limit activity as instructed Patient Instructions: Lumbar Spinal Stenosis (DC), Laminectomy (DC), Opioid Safety, Post Anesthesia Care Activity Restrictions/Additional Instructions: Thank you for choosing [facility] for your care! The following is a list of instructions, from your provider, to follow upon your discharge to ensure you have the optimal recovery from your recent injury or surgery. Follow-up care is a da silva part of your treatment and safety. Be sure to make and go to all appointments and call your doctor if you are having problems. If you do not already have a follow-up appointment made, call Dr. Dolan's] office in the next 1-3 days to make follow up appointment for [1-2] weeks with Dr Dolan at [phone]. It is also a good idea to know your test results and keep a list of the medicines you take. Medications will be prescribed for you at your provider's discretion. These medications are to be used as instructed; if they are taken more often that prescribed they will not be refilled early and in most cases will not be refilled at all. > When a refill is needed, you should contact ou zoya 2-3 business days before your prescription runs out. Medications will NOT be refilled by collections attorney providers after hours! > Many pain medications contain Tylenol (Acetaminophen). Do not consume more than 4,000 mg of Tylenol per day in total with any combination of medications. > Pain medications can cause constipation. Please use an over the counter stool softener as directed, while taking pain medications. Consult your local pharmacist with questions or recommendations on stool softeners. If constipation persists, contact our office or your primary care provider. > While under our care, you are not to receive pain medications or other controlled substances from any other provider unless our office is notifie d and approves. Any attempts to do so will result in refusal to prescribe any further pain medications and possible dismissal from our practice. ? Walking is essential for the healing process after surgery. We would like you to slowly advance your walking. This should be done on relatively flat clear ground (inside or out) or can be done on a treadmill. Remember this goal does not have to happen all at once, slowly increase your distance and duration. This can be broken into more more than one walk per day as tolerated. Patients who walk as directed after surgery rarely require P hysical Therapy. In the unlikely event this issue arises your provider will direct hospital staff to make the appropriate arrangements. ? No lifting over 5 pounds {a gallon of milk) or bending/twisting until further notice. Each of these activities places an unnecessary amount of stress onto the body and can impede the delicate healing process. > Instead of bending at the waist, keep your back straight and bend at the knees. > Instead of twisting your torso, keep your back straight and turn your entire body with your feet. ? You may sleep in any position which makes you comfortable. Many patients find comfort sleeping in a reclining chair. It is not abnormal to have difficulty sleeping for the first several weeks following your surgery. We recommend trying Benadry! or Tylenol PM as directed to help with your sleeping difficulties. Both medications are over the counter and available without prescription. ? NO SMOKING!!! Smoking dramatically increases the probability of developing postoperative wound infections. ? Common complaints after lumbar and/or thoracic spine surgery include, but are not limited to: numbness and/or tingling in the legs, pain around the incision and surrounding tissues, muscle spasms, or stiffness of the middle to low back. Contact our office if these symptoms persist or if an acute change occurs. ? No driving for the first 3-5days, and not while taking narcotics until seen at your follow-up appointment and cleared. There are no restrictions for riding on short trips, however if you take a longer trip, arrangements should be made to make regular stops to get out of the vehicle and stretch . ? Swelling is an unfortunate event that will take place with any surgery and is the primary source of your postoperative discomfort. While walking and regular approved activities helps control inflammation, there are additional steps you can take to minimize swelling. > Place ice over the surgical site and surrounding tissue for twenty minutes, followed by applying a low/medium heat (heating pad) for an additional twenty minutes every 1-2 hours as needed for painrelief. > You may use of over the counter anti-inflammatory medications (Ibuprofen, Motrin, Aleve, Advil, etc) as directed on the package label. These types of medicines will significantly reduce the amount of discomfort you experience after surgery from swelling. It should be noted that if you have and allergy to any of these medications, or a history of ulcers or kidney disease you should consult you primary care provider prior to starting these medications. Discharge Attestations Time Spent in Discharge Care*: less than 30 min Quality Metrics Clinical Quality Measures [ No reported AMI, CVA or VTE this stay] Coding Level of Care Code Acute Code for Chg Fwd Diagnoses Acute blood loss as cause of postoperative anemia D62 Status post lumbar spinal fusion Z98.1
== END 2022-12-02 13:00 | disposition home or self-care (01) | DRG 460 ==
LOC: ICU 17:09
PROVIDERS: Admitting Provider Orthopaedic Surgery; PCP Internal Medicine; Visit Provider Orthopaedic Surgery
PROC: 0SG704Z Fusion of Right Sacroiliac Joint with Internal Fixation Device, Open Approach (ICD-10-PCS; CPT 22612; principal; 2022-11-30 08:55)
PROC: 0SG704Z Fusion of Right Sacroiliac Joint with Internal Fixation Device, Open Approach (ICD-10-PCS; 2022-11-30 08:55)
DX: M48.061 Spinal stenosis, lumbar region without neurogenic claudication (principal); D62 Acute posthemorrhagic anemia; Z98.1 Arthrodesis status; G89.4 Chronic pain syndrome; K21.9 Gastro-esophageal reflux disease without esophagitis; E03.9 Hypothyroidism, unspecified; G43.909 Migraine, unspecified, not intractable, without status migrainosus; E55.9 Vitamin D deficiency, unspecified; Z79.891 Long term (current) use of opiate analgesic
CPT/HCPCS: 36415; 51702; 72100; 76000; 80048; 85014; 85018; 85025; 86850; 86900; 96376; 97161; 97530; C1713; C1762; J0131; J0330; J0690; J1100; J1170; J1200; J1644; J1885; J2250; J2270; J2370; J2405; J2704; J3010; J3370; J3490; J7030; J7060; J7120

== ENCOUNTER → 2023-01-14 14:15 | Outpatient (BNVA) | payer OTHER, SELFPAY | PROVIDERS: PCP Internal Medicine; Visit Provider Orthopaedic Surgery | DX: Z98.1 Arthrodesis status (principal); Z47.89 Encounter for other orthopedic aftercare; M85.58 Aneurysmal bone cyst, other site | CPT/HCPCS: 72100 ==

== ENCOUNTER 2023-01-28 10:11 | Outpatient (CLI) | payer OTHER, SELFPAY ==
--- NOTE | 2023-01-28 10:30 | CT_ITS ---
WS: [id number] CT LUMBAR SPINE TECHNIQUE: Noncontrast CT of the lumbar spine with coronal and sagittal reformatted images. CLINICAL INFORMATION: post operative pain COMPARISON: CT 10/28/2022 DLP: 780.[address] scans at [facility] use at least one of these dose optimization techniques: automated e xposure control; mA and/or kV adjustment per patient size (includes targeted exams where dose is matc hed to clinical indication); or iterative reconstruction. FINDINGS: Mild lumbar curve. Prior postoperative changes pedicle screw fixation L3-S2. Dorsal interconnecting r ods. Interbody fusion L5-S1. Laminectomy defects L3-4 with spinal canal decompression. No evidence of drainable fluid collection or abscess. Lumbar curve convex LEFT. Sacroiliac fusion. L1-L2: Normal. L2-L3: Mild annular bulging. Slight effacement of thecal sac with slight narrowing of the subarticula r recess unchanged. Mild facet arthropathy. Foramen are patent. L3-L4: Laminectomy defects. Spinal canal has been decompressed. Foramina are patent. L4-L5: Laminectomy defects. Spinal canal and foramen are patent. Mild facet arthropathy. L5-S1: Interbody bony fusion. Foramen are patent. Moderate facet arthropathy. Visualized pelvic bony structures: Normal. Paravertebral soft tissues: Normal. IMPRESSION: 1. Postoperative changes L3-S2 with pedicle screw fixation. Interbody fusion L5-S1. Hardware appears intact. 2. Bilateral sacroiliac fusion. 3. Laminectomy defects L3-L4 and L4-L5. No drainable fluid collections. 4. No high-grade spinal canal or foraminal narrowing. 5. No other acute or suspicious findings.
== END 2023-01-28 10:12 | disposition home or self-care (01) ==
PROVIDERS: PCP Internal Medicine; Visit Provider Orthopaedic Surgery
DX: G89.18 Other acute postprocedural pain (principal); Z98.1 Arthrodesis status
CPT/HCPCS: 72131

== ENCOUNTER → 2023-02-18 15:17 | Outpatient (BNVA) | payer OTHER, SELFPAY | PROVIDERS: PCP Internal Medicine; Visit Provider Orthopaedic Surgery | DX: Z98.1 Arthrodesis status (principal) | CPT/HCPCS: 72100 ==

== ENCOUNTER 2023-03-09 12:46 | Outpatient (RCR) | payer OTHER, SELFPAY | END 2023-04-06 23:59 | disposition home or self-care (01) | LOC: SPT 12:46 | PROVIDERS: Visit Provider Orthopaedic Surgery | DX: Z47.89 Encounter for other orthopedic aftercare (principal); Z98.890 Other specified postprocedural states | CPT/HCPCS: 97110; 97162; 97530; G0283 ==

== ENCOUNTER → 2023-04-01 13:30 | Outpatient (BNVA) | payer OTHER, SELFPAY | PROVIDERS: PCP Internal Medicine; Visit Provider Orthopaedic Surgery | DX: Z98.1 Arthrodesis status (principal) | CPT/HCPCS: 72100 ==

== ENCOUNTER 2023-04-07 06:00 | Outpatient (RCR) | payer OTHER, SELFPAY | END 2023-05-06 23:59 | disposition home or self-care (01) | LOC: SPT 06:00 | PROVIDERS: PCP Internal Medicine; Visit Provider Orthopaedic Surgery | DX: M43.27 Fusion of spine, lumbosacral region (principal) | CPT/HCPCS: 97110; 97530; G0283 ==

== ENCOUNTER 2023-04-14 12:36 | Outpatient (CLI) | payer OTHER, SELFPAY ==
--- NOTE | 2023-04-14 13:00 | MR_ITS ---
WS: [id number] MRI LUMBAR SPINE WITH CONTRAST TECHNIQUE: Sagittal T1, T2 and STIR imaging. Axial T1 and T2 imaging. Post gadolinium imaging was obt ained. CLINICAL INFORMATION: Z98.1 - Arthrodesis status COMPARISON: CT 01/28/2023 FINDINGS: Mild lumbar curve. No acute compression. No high-grade central canal stenosis. Prior postoperative ch anges pedicle screw fixation L3-S2. Dorsal interconnecting rods. Interbody fusion L5-S1. Laminectomy defects L3-4 and L4-5 with spinal canal decompression. No evidence of drainable fluid collection or a bscess. Bilateral sacroiliac fusion. Small RIGHT paracentral protrusion at T11-T12 covered on the sagittal imaging. L1-L2: Normal. L2-L3: Mild annular bulging with mild central canal stenosis. Narrowing of the subarticular recess bi laterally RIGHT greater than LEFT. Mild facet arthropathy. Foramen are patent. L3-L4: Mild annular bulging. Spinal canal and foramen are patent. Spinal canal has been decompressed. L4-L5: Mild annular bulge with narrowing of the subarticular recess bilaterally. Hemilaminectomies. F oramen are patent. Mild facet arthropathy. L5-S1: Prior postoperative changes interbody fusion. Spinal canal and foramen are patent. Visualized pelvic bony structures: Normal. Paravertebral soft tissues: Normal. IMPRESSION: 1. Prior postoperative changes pedicle screw fixation L3-S2. Dorsal interconnecting rods. Interbod y fusion L5-S1. 2. Laminectomy defects L3-4 and L4-5 3. Mild central canal stenosis L2-3 with mild annular bulging and narrowing of the RIGHT greater sussy n LEFT subarticular recess. 4. Annular bulging L4-5 with narrowing of the subarticular recess bilaterally and encroachment trave rsing L5 nerve roots. 5. Small RIGHT paracentral protrusion T11-T12 only covered on the sagittal imaging. 6. No evidence of drainable abscess or fluid collection.
[2023-04-14] MEDS: gadobenate dimeglumine 20 mL vial IV (14:01)
== END 2023-04-14 12:37 | disposition home or self-care (01) ==
LOC: RAD 12:36
PROVIDERS: PCP Internal Medicine; Visit Provider Physician Assistant
DX: Z98.1 Arthrodesis status (principal)
CPT/HCPCS: 72158; A9577

== ENCOUNTER 2023-04-19 14:31 | Outpatient (CLI) | payer OTHER, SELFPAY ==
--- NOTE | 2023-04-19 14:54 | MM_ITS ---
WS: [id number] BILATERAL 3D TOMOSYNTHESIS DIGITAL SCREENING MAMMOGRAPHY WITH CAD CLINICAL INFORMATION: SCREENING HISTORY: Screening mammogram. No current complaints. COMPARISON: 2020 TECHNIQUE: Bilateral CC and MLO views. FINDINGS: Scattered fibroglandular densities bilaterally. No suspicious focal mass, asymmetry, calcifications, or architectural distortion. No evidence of malignancy. A few tiny incidental punctate calcifications . IMPRESSION: MM/[place] [id number] BI-RADS: 2-Benign FOLLOW UP: 1 Year Follow-up Recommend return to annual screening mammography.
== END 2023-04-19 14:32 | disposition home or self-care (01) ==
LOC: RAD 14:32
PROVIDERS: PCP Internal Medicine; Visit Provider Nurse Practitioner Family
DX: Z12.31 Encounter for screening mammogram for malignant neoplasm of breast (principal)
CPT/HCPCS: 77063; 77067

== ENCOUNTER 2023-05-07 06:00 | Outpatient (RCR) | payer OTHER, SELFPAY | END 2023-06-06 23:59 | disposition home or self-care (01) | LOC: SPT 06:00 | PROVIDERS: PCP Internal Medicine; Visit Provider Orthopaedic Surgery | DX: M43.27 Fusion of spine, lumbosacral region (principal) | CPT/HCPCS: 97032; 97110 ==

== ENCOUNTER → 2023-10-14 15:28 | Outpatient (BNVA) | payer OTHER, SELFPAY | PROVIDERS: PCP Internal Medicine; Visit Provider Orthopaedic Surgery | DX: Z98.1 Arthrodesis status (principal) | CPT/HCPCS: 72100 ==

== ENCOUNTER 2024-12-19 07:31 | Day surgery (SDC) | payer OTHER, SELFPAY ==
[2024-12-19 07:47] VITALS: BP 125/78; PULSE 79; RESP 18; TEMP 36.1; O2SAT 98; BMI 33.4
--- NOTE | 2024-12-19 08:13 | ANES.PREANE2 ---
Pre-Anesthetic Assessment Height/Weight: Height 5 ft 6 in Weight 207 lb Temp Pulse Resp BP Pulse Ox O2 Del Method 97.0 F L 79 18 125/78 98 Room Air 12/19/24 07:47 12/19/24 07:47 12/19/24 07:47 12/19/24 07:47 12/19/24 07:47 12/19/24 07:47 Preop Diagnosis: GERD Operation Date: 12/19/24 08:30 Proposed Procedures p EGD with Biopsy [id number] G0105, R12 R19.4(Not Applicable) - Kev Harmon MD s Colonoscopy(Not Applicable) - Kev Harmon MD Was Beta Ayesha taken within 24 hours: N/A Was Clonidine taken within 24 hours: N/A Last intake: Intake Last Liquid Date 12/18/24 Last Liquid Time 19:00 Last Solid Date 12/17/24 Last Solid Time 22:30 Social No alcohol and No tobacco Exam alert, oriented x 3, clear to auscultation bilaterally and regular rate & rhythm Airway Submandibular: within normal limits Cervical ROM: within normal limits Mallampati: Class II Dentition: full Anesthetic Plan ASA status: 3 Anesthesia: MAC Other: No prior issues with anesthesia Completed bowel prep History of seizures, on chronic Depakote. Last taken last night. No seizures in years Chronic migraines Hypothyroidism on Synthroid. S/p thyroidectomy Chronic back pain METs greater than 4 Plan for MAC anesthesia Medications/Allergies Home Medications ?Medication ?Instructions ?Recorded ?Confirmed ?Last Taken ?Type carisoprodol 350 mg tablet (Soma) 350 mg PO TID PRN Spasms 06/14/19 12/13/24 12/19/24 07:00 History levothyroxine 200 mcg capsule 200 mcg PO DAILY 06/14/19 12/13/24 12/19/24 07:00 History zonisamide 100 mg capsule 200 mg PO BEDTIME 06/14/19 12/13/24 12/13/24 History (Zonegran) morphine 30 mg immediate release 30 mg PO TID PRN Pain 06/19/19 12/13/24 12/19/24 07:00 History tablet ondansetron HCl 4 mg tablet 4 mg PO Q6H PRN nausea and 03/19/20 12/13/24 11/23/22 Rx vomiting #10 tabs erenumab-aooe 140 mg/mL 140 mg SUBCUT Q30D MIGRAINE 02/04/21 12/13/24 12/17/24 17:00 History subcutaneous auto-injector HEADACHES (Aimovig Autoinjector) divalproex 500 mg tablet,delayed 1,000 mg PO BEDTIME 03/31/21 12/13/24 12/18/24 19:00 History release (Depakote) diphenhydramine HCl 25 mg capsule 25 mg PO TID PRN Itching 11/25/22 12/13/24 11/28/22 History (Benadryl) docusate sodium 250 mg capsule 250 mg PO DAILY PRN Constipation 11/25/22 12/13/24 11/25/22 History ibuprofen 200 mg tablet 600 mg PO BID PRN Pain 11/27/22 12/13/24 12/11/24 History Bone Growth Stimulator [id number] #1 ea 12/04/22 11/23/24 Unknown Rx oxycodone 10 mg tablet 10 mg PO Q4H PRN pain 7 days #40 01/14/23 12/13/24 Unknown Rx tabs oxycodone 5 mg tablet 5 mg PO Q4H PRN pain 7 days #40 01/14/23 12/13/24 Unknown Rx tabs rizatriptan 10 mg tablet See Rx Instructions PO .COMPLEX 10/14/23 12/13/24 Unknown History ergocalciferol (vitamin D2) 1,250 1,250 mcg PO .WKLY 11/23/24 12/13/24 12/17/24 History mcg (50,000 unit) capsule (Vitamin D2) hydrocodone 10 mg-acetaminophen 1 tab PO Q6H PRN Pain 11/23/24 12/13/24 12/11/24 History 325 mg tablet lubiprostone 8 mcg capsule 8 mcg PO BID PRN Constipation 11/23/24 12/13/24 12/11/24 History pantoprazole 40 mg tablet,delayed 40 mg PO BID 6 weeks #84 tabs 11/23/24 12/13/24 12/19/24 07:00 Rx release (Protonix) sucralfate 100 mg/mL oral 10 ml PO BID 6 weeks #840 mL 11/23/24 12/13/24 12/13/24 Rx suspension divalproex 250 mg tablet,delayed 250 mg PO BEDTIME 12/13/24 12/13/24 12/18/24 19:00 History release (Depakote) ezetimibe 10 mg tablet 10 mg PO BEDTIME 12/13/24 12/13/24 12/13/24 History wluojxpv-aof-lypx-FA-Ca carb-vit K 1 tab PO DAILY 12/13/24 12/13/24 12/13/24 History 18 mg iron-400 mcg-500 mg tablet Allergies Allergy/AdvReac Type Severity Reaction Status Date / Time ofloxacin (From Floxin) Allergy ADR-Muscle Verified 12/19/24 07:41 Pain Sulfa (Sulfonamide Allergy ALGY-Hives Verified 12/19/24 07:41 Antibiotics) DERMABOND Allergy ALGY-Hives Uncoded 12/19/24 07:41 Current Medications Generic Name Dose Route Start Last Admin Trade Name Freq PRN Reason Stop Dose Admin Sodium Chloride 1,000 mls @ 15 mls/hr 12/19/24 07:35 12/19/24 07:53 Sodium Chloride 0.9% IV 12/20/24 07:34 15 mls/hr .Q24H PRN Administration COLONOSCOPY FLUIDS PFSH Anesthesia Medical History (Updated 11/23/24 @ 14:00 by Kev Harmon MD) Pre-op evaluation Uterine fibroid Vitamin D deficiency Chronic nausea Angiokeratoma Malaise and fatigue Gastritis determined by endoscopy Seizures last seizure 2008 Hypothyroidism Chronic back pain Migraines Surgical History History of esophagogastroduodenoscopy (EGD) 06/20/2019: Severe gastritis with bile reflux History of lumbar fusion (05/11/16) Dr. Cruz Left L5-S1 laminotomy/foraminotomy/discectomy for decompression . L5-S1 PLIFF. Please intervertebral prosthetic device. Removal of L5-S1 Zim Dynesys stabilization construct. History of thyroidectomy History of cholecystectomy (02/04/18) S/P insertion of spinal cord stimulator (2008) 01/10/2015 Dr. Cruz. Replacement of subcutaneous programmable pulse generator with connection to intraspinal epidural electrode arrays. Family History Mother Bipolar disorder Depression Cancer Thyroid cancer Thyroid disease Father Diabetes Grandfather Stroke Paternal Grandmother Stroke Maternal Denies family history of CAD (coronary artery disease) Clotting disorder Hyperlipidemia Chronic kidney disease (CKD) Anesthesia complication Bleeding disorder Hypertension Social History Smoking and tobacco/nicotine status: never used tobacco/nicotine Substance/Drug Use: never
--- NOTE | 2024-12-19 08:16 | W.PM.OPSUD ---
Surgery/Procedure H&P Update DATE OF PROCEDURE: December 19, 2024 DATE H&P PERFORMED: 11/23/24 H&P UPDATE INFORMATION: I have reviewed H&P completed within last 30 days, I have examined patient prior to procedure and No changes to prior documentation PREOP DIAGNOSIS: GERD PLANNED PROCEDURE: Operation Date: 12/19/24 08:30 Proposed Procedures p EGD with Biopsy [id number] G0105, R12 R19.4(Not Applicable) - Kev Harmon MD s Colonoscopy(Not Applicable) - Kev Harmon MD
[2024-12-19 08:49] VITALS: BP 116/74; PULSE 86; RESP 17; TEMP 36.8; O2SAT 95
[2024-12-19 09:17] VITALS: BP 120/78; PULSE 68; RESP 16; O2SAT 99
--- NOTE | 2024-12-19 09:24 | ANE.PACU2 ---
Inpatient post-anesthesia follow up: Airway intact: Yes Vital signs: Temperature 98.2 F Pulse Rate 68 Respiratory Rate 16 Blood Pressure 120/78 Pulse Oximetry 99 Oxygen Delivery Me thod Room Air Oxygen Flow Rate Fraction of Inspir ed Oxygen Hydration adequate: Yes Nausea and vomiting: No Pain level: 1 Mental status: Baseline
== END 2024-12-19 09:24 | disposition home or self-care (01) ==
PROVIDERS: PCP Internal Medicine; Visit Provider Student in an Organized Health Care Education/Training Program
PROC: 0DJ08ZZ Inspection of Upper Intestinal Tract, Via Natural or Artificial Opening Endoscopic (ICD-10-PCS; principal; 2024-12-19 08:30)
PROC: 0DJD8ZZ Inspection of Lower Intestinal Tract, Via Natural or Artificial Opening Endoscopic (ICD-10-PCS; CPT 45378; 2024-12-19 08:30)
DX: K29.50 Unspecified chronic gastritis without bleeding (principal); K31.7 Polyp of stomach and duodenum; G43.909 Migraine, unspecified, not intractable, without status migrainosus; E03.9 Hypothyroidism, unspecified; Z79.899 Other long term (current) drug therapy; Z79.890 Hormone replacement therapy; Z88.2 Allergy status to sulfonamides; Z91.048 Other nonmedicinal substance allergy status; Z98.1 Arthrodesis status; Z96.82 Presence of neurostimulator
CPT/HCPCS: 43239; 43251; 45378; 88305; J2704; J7030